=== PATIENT | female | born 1945 | race Caucasian/White ===

== ENCOUNTER 2016-12-30 10:45 | Inpatient (IN) | payer OTHER ==
[~2016-12-30] VITALS: Ht 165.1 cm; Wt 131.5 kg
--- NOTE | 2016-12-30 10:54 | NUR ---
PT TO ED WITH C/O NAUSEA, VOMITING AND DIARRHEA, CHILLS SINCE LAST NIGHT.
--- NOTE | 2016-12-30 11:29 | ED GI/GU/ABDOMINAL COMPLAINT ---
See Addendum History of Present Illness General Chief Complaint: General Adult Stated Complaint: SENT IN BY DR LOPES Source: patient Exam Limitations: no limitations Vital Signs & Intake/Output Vital Signs & Intake/Output Vital Signs Date Time Temp Pulse Resp B/P Pulse O2 O2 Flow FiO2 Ox Delivery Rate 12/30 1410 1300.0 12/30 1357 100.0 85 18 125/60 97 Room Air 12/30 1238 100.5 89 16 121/56 96 Room Air 12/30 1211 99.9 12/30 1130 Room Air 12/30 1129 99.4 95 20 113/53 96 Room Air 12/30 1053 97.3 102 20 98/65 95 Room Air Room Air Allergies Coded Allergies: Penicillins (HIVES 12/30/16) Sulfa (Sulfonamide Antibiotics) (HIVES 12/30/16) red dye (HIVES 12/30/16) Uncoded Allergies: DAIRY FOODS (SNEEZING 12/30/16) Reconcile Medications Alprazolam 0.5 MG TABLET 1 TAB PO BIDP PRN ANXIETY (Reported) Amlodipine Besylate 5 MG TABLET 1 TAB PO DAILY HEART (Reported) Metformin HCl 500 MG TABLET 1 TAB PO BID DM (Reported) Metoprolol Tartrate 50 MG TABLET 1 TAB PO BID BP (Reported) Omeprazole 20 MG CAPSULE. 1 CAP PO DAILY GI (Reported) Triage Note: PT TO ED WITH C/O NAUSEA, VOMITING AND DIARRHEA, CHILLS SINCE LAST NIGHT. Triage Nurses Notes Reviewed? yes ? N Is pt currently ? No Duration: better, gone now Timing: single episode today Quality/Severity: severe, stabbing, throbbing Severity Numbers: 10 Radiation: no radiation Activities at Onset: none HPI: Patient is a 71-year-old female who presents to emergency room sooner last night she was in her normal state of health patient went to sleep at approximately at 12:30 she woke up with acute onset of sharp stabbing severe right-sided back pain which the pain was persistent where there was intermittent episodes of pain radiating to the right groin. Patient states that this morning the symptoms still persisted however overnight she had a few episodes of nonbloody nonbilious emesis. Patient woke up this morning with one more episode of nonbloody nonbilious emesis and mild loose watery stool diarrhea production however no blood no melena was noted. Patient states that she tried taking Tylenol and ibuprofen however had emesis immediately afterwards. Patient states that prior to leaving her house for follow-up at her primary care doctor appointment she took a hot shower and symptoms completely resolved. Patient did have chills throughout the night that has now resolved. Patient was advised to present to the emergency room by primary care doctor. Patient currently is asymptomatic and states that she has no fever, chills, back pain abdominal pain nausea vomiting vaginal bleeding vaginal discharge dysuria hematuria chest pain and arm pain jaw pain. Patient has been able tolerate by mouth since symptoms resolved (HELLEN BRIGHT) ED Sepsis Exam Date of Focused Sepsis Exam: 12/30/16 Time of Focused Sepsis Exam: 1603 Sepsis Cardiac Exam: Regular Rate/Rhythm Sepsis Resp Exam: CTA Sepsis Cap Refill Exam: <2 Sec Sepsis Peripheral Pulse Exam: Normal Sepsis Peripheral Pulse Location: Radial Sepsis Skin Color Exam: Normal for Ethnicity Skin Temp/Moisture Exam: Warm/Dry (HELLEN BRIGHT) Past History Travel History Traveled to [facility] past 21 day No Medical History Any Pertinent Medical History? 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 No (HELLNE BRIGHT) Review of Systems Review of Systems Constitutional: Reports: see HPI, chills. EENTM: Reports: no symptoms. Respiratory: Reports: no symptoms. Cardiovascular: Reports: no symptoms. GI: Reports: see HPI, nausea, vomiting. Denies: abdominal pain. Genitourinary: Denies: discharge. Musculoskeletal: Reports: see HPI, back pain. Skin: Reports: no symptoms. Neurological/Psychological: Reports: no symptoms. Hematologic/Endocrine: Reports: no symptoms. Immunologic/Allergic: Reports: no symptoms. All Other Systems: Reviewed and Negative (HELLEN BRIGHT) Physical Exam Physical Exam General Appearance: no apparent distress, obese Gastrointestinal: normal bowel sounds, soft, non-tender Comments: Well-developed well-nourished person in no acute distress HEENT: Normal EENT exam, extraocular motion intact, no nystagmus. Pupils equally round and reactive to light and accommodation. Nose is atraumatic. External auditory canal and Tympanic membranes clear. Pharynx normal. No swelling or edema. Neck: Supple, no lymphadenopathy, normal range of motion without pain or tenderness Back: Nontender, no CVA tenderness. Cardiovascular: Regular rate and rhythms no murmurs rubs or gallops, normal JVP Respiratory: Chest nontender. No respiratory distress.breath sounds clear to auscultation bilaterally Abdomen: Soft, nontender nondistended, no appreciable organomegaly. Normal bowel sounds. No ascites Extremity: No edema, no calf tenderness to palpation, normal and equal pulses. Neuro: Alert oriented x3, motor sensory normal, Skin: No appreciable rash on exposed skin, skin is warm and dry. Psych: Mood and affect is normal, memory and judgment is normal. Core Measures ACS in differential dx? No Severe Sepsis Present: Yes BC x2: Yes Lactic Acid x2: Yes IV ABX Broad Spectrum: Yes NS/LR Started: Yes Septic Shock Present: No (CONRADO GARCIA,HELLEN) Progress Differential Diagnosis: AAA, AMI, appendicitis, biliary colic, bowel obstruction , colon cancer, cholecystitis, diverticulitis, ectopic , endometritis, esophageal varices, gastritis, hepatitis, hernia, hemorrhoids, ischemic bowel, inflamm bowel dis, intrauterine , kidney stone, Gemini-Hermes tear, ovarian cyst, ovarian torsion, pancreatitis, PID/cervicitis, peptic ulcer, PUD/ GERD, perforated viscous, SBO, threatened AB, UTI/pyelo Plan of Care: Orders Procedure Date/time Status Nothing by Mouth 12/30 D Active EKG 12/30 1622 Active Add-on Test (ER Only) 12/30 1236 Active BLOOD CULTURE 12/30 1227 Active LACTIC ACID 12/30 1158 Complete URINALYSIS 12/30 1139 Active MAGNESIUM 12/30 1139 Complete LIPASE 12/30 1139 Complete COMPREHENSIVE METABOLIC PANEL 12/30 1139 Complete CBC WITHOUT DIFFERENTIAL 12/30 1139 Complete AMYLASE 12/30 1139 Complete Current Medications Sig/Mitchell Start time Last Medication Dose Stop Time Status Admin Sodium Chloride 1,000 ML BOLUS ONE 12/30 1615 AC (Normal Saline 0.9%) 12/30 1714 Laboratory Tests 12/30/16 1612: Urine Color Pending, Urine Clarity Pending, Urine pH Pending, Ur Specific Busby Pending, Urine Protein Pending, Urine Ketones Pending, Urine Nitrite Pending, Urine Bilirubin Pending, Urine Urobilinogen Pending, Ur Leukocyte Esterase Pending, Ur Microscopic Pending, Urine Hemoglobin Pending, Urine Glucose Pending 12/30/16 1557: Lactic Acid Cancelled 12/30/16 1257: Lactic Acid Cancelled 12/30/16 1158: Lactic Acid 3.6 H 12/30/16 1158: Anion Gap 14, Estimated GFR 26 L, BUN/Creatinine Ratio 16.3, Glucose 129 H, Calcium 9.4, Magnesium 1.3 L, Total Bilirubin 0.9, AST 21, ALT 30, Alkaline Phosphatase 82, Total Protein 6.6, Albumin 3.5, Globulin 3.1, Albumin/Globulin Ratio 1.1, Amylase 177 H, Lipase 194, CBC w Diff MAN DIFF ORDERED, RBC 4.21, MCV 84.1, MCH 27.8, RDW 13.9, MPV 9.4, Segmented Neutrophils 65, Band Neutrophils 27 H, Lymphocytes 3 L, Monocytes 5, Platelet Estimate VERIFIED BY SMEAR, Normocytic RBCs VERIFIED, Normochromic RBCs VERIFIED, PUBS MCHC 33.0 Microbiology 12/30 1315 BLOOD: Blood Culture - RECD 12/30 1305 BLOOD: Blood Culture - RECD Patient currently is resting comfortably on her bed in his apparent distress and is asymptomatic and has nontender abdomen nontender back and states her symptoms have completely resolved. Blood work will be established at this time patient does not require a CT scan warrant emergently for patient in which she has no symptoms CT scan was resulted showing significant concerns of objective kidney stone and pyelonephritis I discussed patient with Dr. Adams who will emergently stent patient. Patient last ate 24 hours ago. Patient currently is in no apparent distress she was given sepsis criteria protocol patient was weight made aware of her critical health and the disposition and plan and she agrees Dr. Adams will Shaver catheterized patient to obtain urine which patient was unable to produce urine in the ER. (CONRADO GARCIA,HELLEN) Diagnostic Imaging: Viewed by Me: CT Scan. Radiology Impression: acute abnormality Initial ED EKG: none Comments: PATIENT: JIMI MOTA PRESENT AGE: 71 PATIENT ACCOUNT NO: [id number] : 47 LOCATION: [facility] ORDERING PHYSICIAN: HELLEN GARCIA SERVICE DATE: 12/30/162646 EXAM TYPE: CAT - CT ABD & PELVIS W/O IV CONTRAS EXAMINATION: CT ABDOMEN AND PELVIS WITHOUT CONTRAST CLINICAL INFORMATION: Nausea, vomiting and abdominal pain. COMPARISON: Ultrasound Kidney 06/04/2010. TECHNIQUE: Multidetector volumetric imaging was performed from the superior aspect of the liver through the pubic symphysis. Sagittal and coronal reformatted images were obtained on the technologist's workstation. DLP: 1376 mGy-cm FINDINGS: Limited evaluation of the solid abdominal viscera in the absence of intravenous contrast. LUNG BASES: The visualized lung bases are unremarkable. LIVER, GALLBLADDER, AND BILIARY TREE: The liver is normal in size, shape, and attenuation. No focal hepatic lesion or biliary ductal dilatation is present. The gallbladder is unremarkable with no evidence of radiopaque gallstones, gallbladder wall thickening, or obvious pericholecystic inflammatory changes. PANCREAS: Unremarkable. SPLEEN: Unremarkable. ADRENAL GLANDS: Unremarkable. KIDNEYS AND URETERS: Evaluation of the bilateral kidneys and renal collecting systems is notable for obstructive uropathy of the right kidney secondary to a large stone within the right renal pelvis, at the right ureteropelvic junction. This stone measures approximately 1.9 x 0.8 x 1.3 cm in transverse, AP and craniocaudal dimensions respectively. There is associated upstream mild to moderate hydronephrosis of the right kidney and proximal right ureter. Of note, a small focus of gas is identified within the midpole of the right kidney. A small locule of air is also noted within the right renal pelvis. The etiology for this air is unknown and may be secondary to recent attempt at catheterization although an emphysematous pyelitis can present similarly. There is diffuse right-sided perinephric stranding, which may be secondary to obstruction although a superimposed infection cannot be excluded. No appreciable nephrolithiasis or hydroureteronephrosis of the left kidney or left renal collecting system. BLADDER: Decompressed and partially evaluated secondary to streak artifact from total right hip arthroplasty. GASTROINTESTINAL TRACT: Normal anatomic orientation of the stomach relative to the duodenum. Normal caliber of abdominal and pelvic bowel loops, without evidence of obstruction or ileus. No circumferential bowel wall thickening with surrounding inflammatory changes to suggest an underlying infectious or inflammatory enterocolitis. Normal-appearing appendix within the right lower quadrant of the abdomen. Scattered colonic diverticulosis, notably involving the sigmoid colon, without secondary signs of acute diverticulitis. No organizing intra-abdominal fluid collections or free intraperitoneal air. ABDOMINAL WALL: No significant hernia is appreciated. LYMPH NODES: No significant abdominal or pelvic adenopathy. VASCULAR: Scattered atherosclerosis of the abdominal aorta and its branching vessels, without aneurysmal dilatation. Limited evaluation for vascular patency given lack of intravenous contrast. PELVIC VISCERA: Limited evaluation of the pelvic viscera secondary to streak artifact from total right hip arthroplasty. The uterus may be surgically absent. No adnexal masses are noted. OSSEOUS STRUCTURES: Demineralization of the visualized bones. Moderate multilevel degenerative changes of the lumbar spine, notably at L2-L3 and L5-S1. As noted above, there is mechanical hardware related to total right hip arthroplasty. No destructive osseous lesions are identified. There is no acute osseous abnormality. IMPRESSION: 1. Obstructive uropathy of the right kidney secondary to a large stone within the right renal pelvis, at the right ureteropelvic junction. This stone measures approximately 1.9 x 0.8 x 1.3 cm in transverse, AP and craniocaudal dimensions respectively. Two small locules of air are identified within the midpole of the right kidney as well as the right renal pelvis. In the absence of a known recent attempt at catheterization, this could reflect emphysematous pyelitis secondary to superimposed acute bacterial infection in the setting of obstruction. An early or developing emphysematous pyelonephritis can also present similarly and carries a high risk for fulminant sepsis. Recommend urological consultation and correlation with urinalysis and urine culture. 2. Scattered sigmoid diverticulosis, without secondary signs of acute diverticulitis. 3. Additional nonemergent findings, as detailed above. This critical result was discussed with Dr. Heleln Kingston at 2:21 PM on 12/30/2016 and it was ascertained that the content and urgency of the report was understood at the time of direct communication. DICTATED BY: VIKTOR MORALES MD DATE/TIME DICTATED:12/30/161405 REGRINDER OPERATOR:NAM DATE/TIME TRANSCRIBED:12/30/161405 (HELLEN BRIGHT) Departure Departure Disposition: STILL A PATIENT Condition: Critical Clinical Impression Primary Impression: Sepsis Secondary Impressions: Kidney stone, Pyelonephritis, UTI (urinary tract infection) Referrals: MOSES CHAMPION,IMER Tesfaye (PCP/Family) Departure Forms: Customer Survey General Discharge Information OR/GI Note Spoke With: ZHAO ADAMS MD ED Treatment Decision: JIMI MOTA requires urgent operative management or an emergent procedure that cannot be performed in the Emergency Room setting. Transport To: [facility] (HELLEN BRIGHT) PA/LOCATOR Co-Sign Statement Statement: ED Attending supervision documentation- [X] I saw and evaluated the patient. I have also reviewed all the pertinent lab results and diagnostic results. I agree with the findings and the plan of care as documented in the PA's/LOCATOR's documentation. [X] I have reviewed the ED Record and agree with the PA's/LOCATOR's documentation. [] Additions or exceptions (if any) to the PAs/LOCATOR's note and plan are summarized below: [] (CORKY CHAMPION,FRANC Rivera) Critical Care Note Critical Care Note Critical Care Time: 30-74 min (HELLEN BRIGHT)
--- NOTE | 2016-12-30 11:30 | NUR ---
[facility] CAMP AT BEDSIDE
[2016-12-30] MEDS ORDERED: METFORMIN HCL500 M3 PO (11:39)
[2016-12-30] MEDS ORDERED: OMEPRAZOLE20 M2 PO (11:40)
[2016-12-30] MEDS ORDERED: AMLODIPINE BESYL5 M1 PO (11:40)
[2016-12-30] MEDS ORDERED: METOPROLOL TART50 M1 PO (11:41)
[2016-12-30] MEDS ORDERED: ALPRAZOLAM0.5 M4 PO (11:41)
--- NOTE | 2016-12-30 12:03 | NUR ---
LABS DRAWN AND SENT: SST, BLUE, LAV, MORELAND
[2016-12-30 12:09] LABS: HEMATOCRIT 35.4 % (37-47); MEAN CORPUSCULAR HGB 27.8 PG (27.0-31.0); MEAN CORPUSCULAR VOLUME 84.1 FL (81.0-99.0); MEAN PLATELET VOLUME 9.4 FL (7.4-10.4); PLATELET COUNT 121 /CUMM (130-400); RBC DISTRIBUTION WIDTH 13.9 % (11.5-14.5); RED BLOOD CELL CT 4.21 /CUMM (4.20-5.40); WHITE BLOOD CELL COUNT 12.5 /CUMM (4.8-10.8)
--- NOTE | 2016-12-30 12:11 | NUR ---
PT C/O SEVERE CHILLS, TEMP 99.9 TYMPANICALLY. RADHA CAMP AT BEDSIDE FOR RE-EVAL. PT'S FAMILY MEMBERS VERY CONCERNED. REASSURANCE PROVIDED
--- NOTE | 2016-12-30 12:52 | NUR ---
PT HAS SECOND LITER INFUSING
--- NOTE | 2016-12-30 14:00 | NUR ---
CRITICAL TEST RESULTS [id number] JIMI MOTA 71 F TESTS AND RESULTS: LACTIC 3.6 Results received and read back by: ARCADIO HIGHTOWER Results received date and time: 12/30/16 1405 The following provider was notified of the results, and read the results back: DR. FRIED Notified date and time: 12/30/16 at 1400
--- NOTE | 2016-12-30 14:30 | NUR ---
MD DISCUSS POC WITH PT AND FAMILY
--- NOTE | 2016-12-30 14:34 | CT SCAN REPORT ---
EXAMINATION: CT ABDOMEN AND PELVIS WITHOUT CONTRAST CLINICAL INFORMATION: Nausea, vomiting and abdominal pain. COMPARISON: Ultrasound Kidney 06/04/2010. TECHNIQUE: Multidetector volumetric imaging was performed from the superior aspect of the liver through the pubic symphysis. Sagittal and coronal reformatted images were obtained on the technologist's workstation. DLP: 1376 mGy-cm FINDINGS: Limited evaluation of the solid abdominal viscera in the absence of intravenous contrast. LUNG BASES: The visualized lung bases are unremarkable. LIVER, GALLBLADDER, AND BILIARY TREE: The liver is normal in size, shape, and attenuation. No focal hepatic lesion or biliary ductal dilatation is present. The gallbladder is unremarkable with no evidence of radiopaque gallstones, gallbladder wall thickening, or obvious pericholecystic inflammatory changes. PANCREAS: Unremarkable. SPLEEN: Unremarkable. ADRENAL GLANDS: Unremarkable. KIDNEYS AND URETERS: Evaluation of the bilateral kidneys and renal collecting systems is notable for obstructive uropathy of the right kidney secondary to a large stone within the right renal pelvis, at the right ureteropelvic junction. This stone measures approximately 1.9 x 0.8 x 1.3 cm in transverse, AP and craniocaudal dimensions respectively. There is associated upstream mild to moderate hydronephrosis of the right kidney and proximal right ureter. Of note, a small focus of gas is identified within the midpole of the right kidney. A small locule of air is also noted within the right renal pelvis. The etiology for this air is unknown and may be secondary to recent attempt at catheterization although an emphysematous pyelitis can present similarly. There is diffuse right-sided perinephric stranding, which may be secondary to obstruction although a superimposed infection cannot be excluded. No appreciable nephrolithiasis or hydroureteronephrosis of the left kidney or left renal collecting system. BLADDER: Decompressed and partially evaluated secondary to streak artifact from total right hip arthroplasty. GASTROINTESTINAL TRACT: Normal anatomic orientation of the stomach relative to the duodenum. Normal caliber of abdominal and pelvic bowel loops, without evidence of obstruction or ileus. No circumferential bowel wall thickening with surrounding inflammatory changes to suggest an underlying infectious or inflammatory enterocolitis. Normal-appearing appendix within the right lower quadrant of the abdomen. Scattered colonic diverticulosis, notably involving the sigmoid colon, without secondary signs of acute diverticulitis. No organizing intra-abdominal fluid collections or free intraperitoneal air. ABDOMINAL WALL: No significant hernia is appreciated. LYMPH NODES: No significant abdominal or pelvic adenopathy. VASCULAR: Scattered atherosclerosis of the abdominal aorta and its branching vessels, without aneurysmal dilatation. Limited evaluation for vascular patency given lack of intravenous contrast. PELVIC VISCERA: Limited evaluation of the pelvic viscera secondary to streak artifact from total right hip arthroplasty. The uterus may be surgically absent. No adnexal masses are noted. OSSEOUS STRUCTURES: Demineralization of the visualized bones. Moderate multilevel degenerative changes of the lumbar spine, notably at L2-L3 and L5-S1. As noted above, there is mechanical hardware related to total right hip arthroplasty. No destructive osseous lesions are identified. There is no acute osseous abnormality. IMPRESSION: 1. Obstructive uropathy of the right kidney secondary to a large stone within the right renal pelvis, at the right ureteropelvic junction. This stone measures approximately 1.9 x 0.8 x 1.3 cm in transverse, AP and craniocaudal dimensions respectively. Two small locules of air are identified within the midpole of the right kidney as well as the right renal pelvis. In the absence of a known recent attempt at catheterization, this could reflect emphysematous pyelitis secondary to superimposed acute bacterial infection in the setting of obstruction. An early or developing emphysematous pyelonephritis can also present similarly and carries a high risk for fulminant sepsis. Recommend urological consultation and correlation with urinalysis and urine culture. 2. Scattered sigmoid diverticulosis, without secondary signs of acute diverticulitis. 3. Additional nonemergent findings, as detailed above. This critical result was discussed with Dr. Devin Kingston at 2:21 PM on 12/30/2016 and it was ascertained that the content and urgency of the report was understood at the time of direct communication.
--- NOTE | 2016-12-30 14:43 | NUR ---
PT MEDICATED WITH ROCEPHIN ORDERED
--- NOTE | 2016-12-30 14:53 | NUR ---
PT HAS IV FLAGYL AND NS INFUSING
--- NOTE | 2016-12-30 16:18 | NUR ---
URINE COLLECTED AND SENT TO LAB TRIO TUBE SET COLLECTED
--- NOTE | 2016-12-30 16:39 | Cons- Urology ---
General Information and HPI Consulting Request Date of Consult: 12/30/16 Requested By: DO. RIVERA GREGORY-EMERGENCY DEPARTMENT Reason for Consult: RIGHT RENAL PAIN WITH ARF, HYDRO, ?SEPSIS Source of Information: patient, old records Exam Limitations: no limitations History of Present Illness: 71 YEAR OLD WITH SUDDEN ONSET RIGHT RENAL COLIC. NOTED TO HAVE ARF, HYDRO. AND VERY LITTLE URINE OUTPUT. PAIN MANAGED CURRENTLY WITH MEDS. NO FEVER/CHILL/N/ V. Allergies/Medications Allergies: Coded Allergies: Penicillins (HIVES 12/30/16) Sulfa (Sulfonamide Antibiotics) (HIVES 12/30/16) red dye (HIVES 12/30/16) Uncoded Allergies: DAIRY FOODS (SNEEZING 12/30/16) Home Med List: Alprazolam 0.5 MG TABLET 1 TAB PO BIDP PRN ANXIETY (Reported) Amlodipine Besylate 5 MG TABLET 1 TAB PO DAILY HEART (Reported) Metformin HCl 500 MG TABLET 1 TAB PO BID DM (Reported) Metoprolol Tartrate 50 MG TABLET 1 TAB PO BID BP (Reported) Omeprazole 20 MG CAPSULE.DR 1 CAP PO DAILY GI (Reported) Current Medications: Current Medications Sig/Mitchell Start time Last Medication Dose Route Stop Time Status Admin Acetaminophen 0 .STK-MED ONE 12/30 1323 DC IV Acetaminophen 1,000 MG ONCE ONE 12/30 1230 DC 12/30 N/A 1 UNIT IV 12/30 1244 1410 Ceftriaxone Sodium 0 .STK-MED ONE 12/30 1441 DC .ROUTE Ceftriaxone Sodium 1,000 MG ONCE ONE 12/30 1430 DC 12/30 IV 12/30 1431 1443 Ketorolac 0 .STK-MED ONE 12/30 1218 DC Tromethamine .ROUTE Ketorolac 30 MG ONCE ONE 12/30 1215 DC 12/30 Tromethamine IV 12/30 1216 1221 Metronidazole 500 MG ONCE ONE 12/30 1430 DC 12/30 N/A 1 UNIT IV 12/30 1529 1450 Sodium Chloride 1,000 ML BOLUS ONE 12/30 1615 AC IV 12/30 1714 Sodium Chloride 1,000 ML BOLUS ONE 12/30 1500 DC 12/30 IV 12/30 1559 1450 Sodium Chloride 1,000 ML BOLUS ONE 12/30 1245 DC 12/30 IV 12/30 1344 1252 Sodium Chloride 1,000 ML BOLUS ONE 12/30 1145 DC 12/30 IV 12/30 1244 1200 Past History Medical History Neurological: NONE EENT: NONE Cardiovascular: hypertension, hyperlipidemia Respiratory: NONE Gastrointestinal: diverticulitis, GERD, hiatal hernia Hepatic: NONE Renal: NONE Musculoskeletal: osteoarthritis Psychiatric: depression Endocrine: diabetes Blood Disorders: NONE Cancer(s): NONE DIRECTOR OF SERVICES/Reproductive: NONE Surgical History Pertinent Surgical History: Psychosocial History Services at Home: None ETOH Use: denies use Illicit Drug Use: denies illicit drug use Employment History Retired? yes Review of Systems Review of Systems Constitutional: Denies: no symptoms. EENTM: Denies: no symptoms. Cardiovascular: Denies: no symptoms. Respiratory: Denies: no symptoms. GI: Reports: abdominal pain, bloating. Genitourinary: Reports: dysuria. Musculoskeletal: Denies: no symptoms. Skin: Denies: no symptoms. Exam & Diagnostic Data Vital Signs and I&O Vital Signs Date Time Temp Pulse Resp B/P Pulse O2 O2 Flow FiO2 Ox Delivery Rate 12/30 1410 1300.0 12/30 1357 100.0 85 18 125/60 97 Room Air 12/30 1238 100.5 89 16 121/56 96 Room Air 12/30 1211 99.9 12/30 1130 Room Air 12/30 1129 99.4 95 20 113/53 96 Room Air 12/30 1053 97.3 102 20 98/65 95 Room Air Room Air Intake & Output 12/30 1600 12/30 0800 12/30 0000 12/29 1600 12/29 0800 12/29 0000 Intake Total 2100 Output Total Balance 2100 Intake, IV 2100 Patient 290 lb Weight Physical Exam General Appearance: well developed/nourished Head: atraumatic Eyes: Bilateral: normal appearance. Neck: normal inspection Respiratory: normal breath sounds Cardiovascular: regular rate/rhythm Gastrointestinal: normal bowel sounds Back: CVA tenderness (R) Extremities: normal inspection Skin: intact Last 24 Hours of Labs: Laboratory Tests 12/30 12/30 12/30 1557 1257 1158 Chemistry Lactic Acid (0.7 - 2.1 mmol/L) Cancelled Cancelled 3.6 H 12/30 1158 Chemistry Sodium (137 - 145 mmol/L) 137 Potassium (3.5 - 5.1 mmol/L) 3.5 Chloride (98 - 107 mmol/L) 103 Carbon Dioxide (22 - 30 mmol/L) 19 L Anion Gap (5 - 16) 14 BUN (7 - 17 mg/dL) 31 H Creatinine (0.5 - 1.0 mg/dL) 1.9 H Estimated GFR (>60 ml/min) 26 L BUN/Creatinine Ratio (7 - 25 %) 16.3 Glucose (65 - 99 mg/dL) 129 H Calcium (8.4 - 10.2 mg/dL) 9.4 Magnesium (1.6 - 2.3 mg/dL) 1.3 L Total Bilirubin (0.2 - 1.3 mg/dL) 0.9 AST (14 - 36 U/L) 21 ALT (9 - 52 U/L) 30 Alkaline Phosphatase (<127 U/L) 82 Total Protein (6.3 - 8.2 g/dL) 6.6 Albumin (3.5 - 5.0 g/dL) 3.5 Globulin (1.9 - 4.2 gm/dL) 3.1 Albumin/Globulin Ratio (1.1 - 2.2 %) 1.1 Amylase (30 - 110 U/L) 177 H Lipase (23 - 300 U/L) 194 Hematology CBC w Diff MAN DIFF ORDERED WBC (4.8 - 10.8 /CUMM) 12.5 H RBC (4.20 - 5.40 /CUMM) 4.21 Hgb (12.0 - 16.0 G/DL) 11.7 L Hct (37 - 47 %) 35.4 L MCV (81.0 - 99.0 FL) 84.1 MCH (27.0 - 31.0 PG) 27.8 RDW (11.5 - 14.5 %) 13.9 Plt Count (130 - 400 /CUMM) 121 L MPV (7.4 - 10.4 FL) 9.4 Segmented Neutrophils (42.2 - 75.2 %) 65 Band Neutrophils (0.0 - 5.0 %) 27 H Lymphocytes (20.5 - 51.1 %) 3 L Monocytes (1.7 - 9.3 %) 5 Platelet Estimate (ADEQUATE) VERIFIED BY SMEAR Normocytic RBCs VERIFIED Normochromic RBCs VERIFIED PUBS MCHC (33.0 - 37.0 G/DL) 33.0 Imaging Results: PATIENT: JIMI MOTA PRESENT AGE: 71 PATIENT ACCOUNT NO: [id number] : 47 LOCATION: [facility] ([place]) ORDERING PHYSICIAN: HELLEN GARCIA SERVICE DATE: 12/30/162929 EXAM TYPE: CAT - CT ABD & PELVIS W/O IV CONTRAS EXAMINATION: CT ABDOMEN AND PELVIS WITHOUT CONTRAST CLINICAL INFORMATION: Nausea, vomiting and abdominal pain. COMPARISON: Ultrasound Kidney 06/04/2010. TECHNIQUE: Multidetector volumetric imaging was performed from the superior aspect of the liver through the pubic symphysis. Sagittal and coronal reformatted images were obtained on the technologist's workstation. DLP: 1376 mGy-cm FINDINGS: Limited evaluation of the solid abdominal viscera in the absence of intravenous contrast. LUNG BASES: The visualized lung bases are unremarkable. LIVER, GALLBLADDER, AND BILIARY TREE: The liver is normal in size, shape, and attenuation. No focal hepatic lesion or biliary ductal dilatation is present. The gallbladder is unremarkable with no evidence of radiopaque gallstones, gallbladder wall thickening, or obvious pericholecystic inflammatory changes. PANCREAS: Unremarkable. SPLEEN: Unremarkable. ADRENAL GLANDS: Unremarkable. KIDNEYS AND URETERS: Evaluation of the bilateral kidneys and renal collecting systems is notable for obstructive uropathy of the right kidney secondary to a large stone within the right renal pelvis, at the right ureteropelvic junction. This stone measures approximately 1.9 x 0.8 x 1.3 cm in transverse, AP and craniocaudal dimensions respectively. There is associated upstream mild to moderate hydronephrosis of the right kidney and proximal right ureter. Of note, a small focus of gas is identified within the midpole of the right kidney. A small locule of air is also noted within the right renal pelvis. The etiology for this air is unknown and may be secondary to recent attempt at catheterization although an emphysematous pyelitis can present similarly. There is diffuse right-sided perinephric stranding, which may be secondary to obstruction although a superimposed infection cannot be excluded. No appreciable nephrolithiasis or hydroureteronephrosis of the left kidney or left renal collecting system. BLADDER: Decompressed and partially evaluated secondary to streak artifact from total right hip arthroplasty. GASTROINTESTINAL TRACT: Normal anatomic orientation of the stomach relative to the duodenum. Normal caliber of abdominal and pelvic bowel loops, without evidence of obstruction or ileus. No circumferential bowel wall thickening with surrounding inflammatory changes to suggest an underlying infectious or inflammatory enterocolitis. Normal-appearing appendix within the right lower quadrant of the abdomen. Scattered colonic diverticulosis, notably involving the sigmoid colon, without secondary signs of acute diverticulitis. No organizing intra-abdominal fluid collections or free intraperitoneal air. ABDOMINAL WALL: No significant hernia is appreciated. LYMPH NODES: No significant abdominal or pelvic adenopathy. VASCULAR: Scattered atherosclerosis of the abdominal aorta and its branching vessels, without aneurysmal dilatation. Limited evaluation for vascular patency given lack of intravenous contrast. PELVIC VISCERA: Limited evaluation of the pelvic viscera secondary to streak artifact from total right hip arthroplasty. The uterus may be surgically absent. No adnexal masses are noted. OSSEOUS STRUCTURES: Demineralization of the visualized bones. Moderate multilevel degenerative changes of the lumbar spine, notably at L2-L3 and L5-S1. As noted above, there is mechanical hardware related to total right hip arthroplasty. No destructive osseous lesions are identified. There is no acute osseous abnormality. IMPRESSION: 1. Obstructive uropathy of the right kidney secondary to a large stone within the right renal pelvis, at the right ureteropelvic junction. This stone measures approximately 1.9 x 0.8 x 1.3 cm in transverse, AP and craniocaudal dimensions respectively. Two small locules of air are identified within the midpole of the right kidney as well as the right renal pelvis. In the absence of a known recent attempt at catheterization, this could reflect emphysematous pyelitis secondary to superimposed acute bacterial infection in the setting of obstruction. An early or developing emphysematous pyelonephritis can also present similarly and carries a high risk for fulminant sepsis. Recommend urological consultation and correlation with urinalysis and urine culture. 2. Scattered sigmoid diverticulosis, without secondary signs of acute diverticulitis. 3. Additional nonemergent findings, as detailed above. This critical result was discussed with Dr. Hellen Kingston at 2:21 PM on 12/30/2016 and it was ascertained that the content and urgency of the report was understood at the time of direct communication. Assessment/Plan Assessment/Plan RIGHT URETER STONE CAUSING OBST, ARF, LOW U/O, AND INCRESED SEPSIS RISK.: NEED STENT LIZ Other Findings/Comments: SEE ABOVE: Copies To: ZHAO MARVIN MD Consult Acknowledgment - Thank you for your consult request. Attending MD Review Statement Attending Statement Attending MD Statement: examined this patient, discuss w/resident/PA/T[employer]OP BENDER Attending Assessment/Plan: OBST. RIGTH KIDNEY: NEEDS STENT LIZ
--- NOTE | 2016-12-30 17:58 | NUR ---
JIMI MOTA Nurse Note by: GRANT BRANDON I agree with the DIE BAKER findings/evaluation of this patient's condition. Entered by: GRANT BRANDON Date: 12/30/16 Time: [id number]
--- NOTE | 2016-12-30 19:28 | Operative Report ---
Operative/Inv Procedure Report Surgery Date: 12/30/16 Name of Procedure: CYSTOSCOPY: RIGHT STENT INSERTION. RETROGRADE PYELOGRAM. FLUROSCOPY Pre-Operative Diagnosis: OBSTRUCTED RIGHT KIDNEY WITH SEPSIS Post-Operative Diagnosis: SAME Estimated Blood Loss: scant Surgeon/Vascular Technologist: MD SHAVONNE, ZHAO-UROLOGY Anesthesia: general endotracheal tube Complications: NONE Operative Indication: OBSTRUCTED SEPTIC RIGHT KIDNEY Operative/Procedure Note Note: The patient was taken to the operating room and placed on the OR table in supine position. Timeout was performed, with the patient awake, in order to confirm identity, procedure, antibiotics, anesthesia, and other pertinent information. After adequate anesthesia and antibiotics, the patient was placed in lithotomy stirrups draped and prepped in the usual surgical fashion. A 22 Kinyarwanda cystoscope sheath with 30 angle lens was inserted into the urethra without difficulty. Upon entering the bladder, the bladder was noted to be free of tumor, free of stone, with clear reflux from the left ureteral orifice, and no efflux from the right. Under direct visualization the right ureter orifice was intubated with a 5 Kinyarwanda open-ended catheter. A retrograde pyelogram, with fluoroscopy was performed. The distal ureter filling defect consistent with stone was clearly visible, with proximal hydroureter, and hydronephrosis. The open-ended stent was then removed, followed by insertion of a 0.035 Glidewire into the right ureteral orifice. The Glidewire was advanced into the right renal pelvis easily, confirmed by fluoroscopy. Over the Glidewire, a 6 x 22 Bard inlay ureteral stent was advanced. With the proximal coil reaching the right renal pelvis, and the distal coil in the bladder, the Glidewire was removed. The stent remained in proper place both cystoscopically, and fluoroscopically. The bladder was then drained, and the cystoscope was removed. The patient tolerated procedure well and will follow-up as outpatient for further plan/procedures. Findings: LARGE RIGHT UPJ STONE WITH HYDRO.-DRAINING WELL POST STENT CC: ZHAO MARVIN MD
--- NOTE | 2016-12-30 20:03 | History & Physical ---
[facility] 12/30/16 2002: General Information and HPI MD Statement: I have seen and personally examined JIMI MOTA and documented this H&P. The patient is a 71 year old F who presented with a patient stated chief complaint of back pain. Source of Information: patient, old records Exam Limitations: no limitations History of Present Illness: Mrs Ziegler is a 71-year-old lady with past medical history of diabetes, hypertension, GERD and anxiety who presented to the emergency department on 12/29 after experiencing right sided back pain. The patient states that she was in her normal state of health until approximately 12:30 AM on 12/29/2016 when she experienced a sharp and stabbing pain on the right side of her back. The pain was rated at a 10 out of 10 in severity. Patient states over the course of the evening she had to two emetic episodes. She describes these emesis as nonbloody although did contain bile. On the morning of 12/29/2016 the patient went to see her primary care physician Dr. Lopes who after a brief medical encounter recommended that she come to the emergency department for additional workup. The patient also reports overnight while experienceing right sided pain, she had episodes of rigorsShe states that her temperature taken at home was 102.7 deg F. She denies any changes to her appetite. Patient also endorses that approximately 10 days ago she had a similar episode however pain was limited to the right groin and subsequently resolved. Allergies/Medications Allergies: Coded Allergies: Penicillins (HIVES 12/30/16) Sulfa (Sulfonamide Antibiotics) (HIVES 12/30/16) red dye (HIVES 12/30/16) Uncoded Allergies: DAIRY FOODS (SNEEZING 12/30/16) Home Med list Alprazolam 0.5 MG TABLET 1 TAB PO BIDP PRN ANXIETY (Reported) Amlodipine Besylate 5 MG TABLET 1 TAB PO DAILY elevated blood pressure ( Reported) Ciprofloxacin HCl (Cipro) 500 MG TABLET 1 TAB PO BID urinary infection Lisinopril 5 MG TABLET 1 TAB PO DAILY HYPERTENSION (Reported) Metformin HCl 500 MG TABLET 1 TAB PO BID DM (Reported) Metoprolol Tartrate 50 MG TABLET 1 TAB PO BID BP (Reported) Omeprazole 20 MG CAPSULE.DR 1 CAP PO DAILY GI (Reported) Compliance With Home Meds: GOOD Past History Travel History Traveled to [place] past 21 day No Medical History Neurological: NONE EENT: NONE Cardiovascular: hypertension, hyperlipidemia Respiratory: NONE Gastrointestinal: diverticulitis, GERD, hiatal hernia Hepatic: NONE Renal: NONE Musculoskeletal: osteoarthritis Psychiatric: depression Endocrine: diabetes Blood Disorders: NONE Cancer(s): NONE STRAPPER/Reproductive: NONE History of MRSA: No History of VRE: No History of CDIFF: No Surgical History Surgical History: Past Family/Social History Psychosocial History Where do you live? Home Services at Home: None Primary Language: Arabic ETOH Use: denies use Illicit Drug Use: denies illicit drug use Functional Ability ADLs Independent: dressing, eating, toileting, bathing. Review of Systems Review of Systems Constitutional: Reports: chills, fever, malaise, weakness. Denies: diaphoresis. Cardiovascular: Denies: chest pain, edema, orthopena, palpitations, peripheral edema, syncope. Respiratory: Denies: cough, hemoptysis, orthopnea, short of breath, sputum production, stridor. GI: Reports: abdominal pain, nausea, vomiting. Denies: bloating, constipation, diarrhea, distention, bloody stool, changes in stool. Genitourinary: Reports: see HPI (Reports Cloudy Urine). Denies: discharge, dysuria, frequency, pain, urgency. Musculoskeletal: Denies: back pain, gout, joint pain, joint swelling, muscle pain, muscle stiffness. Exam & Diagnostic Data Last 24 Hrs of Vital Signs/I&O Vital Signs Date Time Temp Pulse Resp B/P Pulse O2 O2 Flow FiO2 Ox Delivery Rate 12/30 2202 98.6 96 18 100/60 95 Nasal 3.0L Cannula 12/30 1410 1300.0 12/30 1357 100.0 85 18 125/60 97 Room Air 12/30 1238 100.5 89 16 121/56 96 Room Air 12/30 1211 99.9 12/30 1130 Room Air 12/30 1129 99.4 95 20 113/53 96 Room Air 12/30 1053 97.3 102 20 98/65 95 Room Air Room Air Intake & Output 12/30 1600 12/30 0800 12/30 0000 Intake Total 2100 Output Total Balance 2100 Intake, IV 2100 Patient 131.542 kg Weight Physical Exam General Appearance Alert, Oriented X3, Cooperative Skin No Rashes HEENT Mucous Membr. moist/pink Lymphatic Cervical nl Cardiovascular Regular Rate, Normal S1, Normal S2 Lungs Clear to Auscultation, Limited Exam due to body Habitus Abdomen Normal Bowel Sounds, Soft, No Tenderness Neurological Sensation Intact Extremities Edema 2+ Vascular Normal Pulses Last 24 Hrs of Labs/Johan: Laboratory Tests 12/30/16 2201: Lactic Acid 4.7 H 12/30/16 1612: Urine Color YEL, Urine Clarity CLEAR, Urine pH 6.0, Ur Specific [place] 1.010, Urine Protein TRACE H, Urine Ketones TRACE H, Urine Nitrite POS H, Urine Bilirubin NEG, Urine Urobilinogen 1.0, Ur Leukocyte Esterase MOD H, Ur Microscopic SEDIMENT EXAMINED, Urine RBC 5-10 H, Urine WBC 25-50 H, Ur Epithelial Cells MOD H, Urine Hemoglobin MOD H, Urine Glucose NEG 12/30/16 1557: Lactic Acid Cancelled 12/30/16 1257: Lactic Acid Cancelled 12/30/16 1158: Lactic Acid 3.6 H 12/30/16 1158: Anion Gap 14, Estimated GFR 26 L, BUN/Creatinine Ratio 16.3, Glucose 129 H, Calcium 9.4, Magnesium 1.3 L, Total Bilirubin 0.9, AST 21, ALT 30, Alkaline Phosphatase 82, Total Protein 6.6, Albumin 3.5, Globulin 3.1, Albumin/Globulin Ratio 1.1, Amylase 177 H, Lipase 194, CBC w Diff MAN DIFF ORDERED, RBC 4.21, MCV 84.1, MCH 27.8, RDW 13.9, MPV 9.4, Segmented Neutrophils 65, Band Neutrophils 27 H, Lymphocytes 3 L, Monocytes 5, Platelet Estimate VERIFIED BY SMEAR, Normocytic RBCs VERIFIED, Normochromic RBCs VERIFIED, PUBS MCHC 33.0 Microbiology 12/30 2112 URINE ROUT: Urine Culture - ORD 12/30 190 URINE ROUT: Urine Culture - RECD 12/30 1315 BLOOD: Blood Culture - RECD 12/30 1305 BLOOD: Blood Culture - RECD Diagnostic Data EKG Results Rate 98 QT 360 Sinus Rhythm. Ventricular Trigeminy. Other Results EXAM TYPE: CAT - CT ABD & PELVIS W/O IV CONTRAST IMPRESSION: 1. Obstructive uropathy of the right kidney secondary to a large stone within the right renal pelvis, at the right ureteropelvic junction. This stone measures approximately 1.9 x 0.8 x 1.3 cm in transverse, AP and craniocaudal dimensions respectively. Two small locules of air are identified within the midpole of the right kidney as well as the right renal pelvis. In the absence of a known recent attempt at catheterization, this could reflect emphysematous pyelitis secondary to superimposed acute bacterial infection in the setting of obstruction. An early or developing emphysematous pyelonephritis can also present similarly and carries a high risk for fulminant sepsis. Recommend urological consultation and correlation with urinalysis and urine culture. 2. Scattered sigmoid diverticulosis, without secondary signs of acute diverticulitis. 3. Additional nonemergent findings, as detailed above. Assessment/Plan Assessment: This is a 71-year-old female with past medical history of HTN and diabetes who presented with right sided flank pain secondary due to obstructive large stone. #Sepsis of urological origin likely status post right stent placement s/p obstructive uropathy Imaging studies did show stone measuring 1.90.81.3 cm as well as evidence of emphysematous pyelitis. Continue to hydrate the patient at normal saline 100 mL per hour. Urine cultures Blood cultures 2 Continue ceftriaxone for now. Once further cultures obtained we can tailor appropriate Antibiotics. On admission patient had elevated lactate will trend lactate till resolved: 3.6- ->4.7-->3.4 Ensure lactate going down to rule out hypoperfusion of vital organs. #Acute kidney injury On admission patient's creatinine was 1.9 Hold lisinopril until creatinine within normal limits. Maintain blood pressure below 130/90. BEP in a.m. #History of diabetes mellitus Begin patient on sliding scale insulin. If sugars remain uncontrollable consider endocrinology consult. Aim to maintain blood sugars below 150. #History of anxiety Hold medications to a.m. Continue Xanax 0.5 mg twice a day. #History of GERD Continue patient on PPI #Diet Consistent carbohydrate #DVT prophylaxis Heparin subcutaneous #Code Full code As Ranked By This Provider Problem List: 1. Kidney stone 2. Sepsis Core Measures/Miscellaneous Acute Coronary Syndrome ACS Diagnosis: No Cerebrovascular Accident CVA/TIA Diagnosis: No Congestive Heart Failure CHF Diagnosis: No Venous Thromboembolism VTE Risk Factors: Acute medical illness, Age > 40 VTE Prophylaxis Ordered Inpt: Pharm- Heparin No Mech VTE prophylaxis d/t: No contraindications No VTE Pharm Prophylaxis d/t: No contraindications VTE Diagnosis: No VTE Type: NONE VTE Confirmed by (Test): NONE Severe Sepsis Severe Sepsis Present: Yes BC x2: Yes Lactic Acid x2: Yes IV ABX Broad Spectrum: Yes NS/LR Started: Yes Septic Shock Septic Shock Present: No Miscellaneous Documentation Attending Case Discussed With: TOMY NOE MD Primary Care Physician: IMER LOPES MD Patient sees these Specialists NA Level of Patient Care: General Medicine GAURAV NOE MD 12/30/16 2006: Attending MD Review Statement Attending Statement Attending MD Statement: examined this patient, discuss w/resident/PA/FURNACE RELINER, agreed w/resident/PA/FURNACE RELINER Attending Assessment/Plan: 71 yo morbidly obese F with h/o HTN, GERD, T2DM, CKD stage 3A, HLD, chronic pain , DJD, presented to ER with 1-day h/o right sided flank pain associated with nausea, bilious vomiting and diarrhea. No previous h/o kidney stones. She has a h/o PVC's and has an appointment with Dr. Montes De Oca next week. She denies any recent instrumentation. Imaging revealed large right UPJ stone with hydronephrosis with emphysematous pyelitis/pyelonephritis. She was evaluated by Dr. Adams and taken to OR directly for cystoscopy and right stent placement. Patient was seen by medical team in the PACU. While in the OR, plan was for LMA, however patient desaturated to 60% and hence she was intubated for the procedure. She was also noted to be hypotensive to 90's requiring fluid resuscitation as told to me by Dr. Adams. She was extubated post-procedure without any untoward event. Patient denies any discomfort. Vitals: Tmax 100.5, tachycardic, borderline BP, sats 95% on 3L. Labs: WBC 12.5, Plt 121, bands 27, bicarb 19, BUN 31, creat 1.9 (baseline 1.2), lactic acid 3.6, Mag 1.3, UA positive. EKG: SR with PVCs. 1. Severe sepsis 2/2 obstructive uropathy s/p right ureteral stent insertion. GM admit, follow blood and urine cultures, continue IV ceftriaxone, IV fluids, trend lactic acid. Pain management. Replete electrolytes. Provide incentive spirometry. 2. Acute on CKD stage 3A. Hold lisinopril and metformin. IV fluids, trend BUN/ creatinine. 3. GERD. IV PPI. 4. T2DM. Hold metformin. Accucheks, novolog SS. DVT ppx Alps (given thrombocytopenia). Full code. GAYLE GONZALEZ MD 12/30/16 2148: Resident Review Statement Resident Statement: examined this patient, discussed with internal specialist, agreed with internal specialist Other Findings: 71 y/o woman with a PMH of HTN, HLD, GERD, Depression, DM presenting to the ED with complaints of severe back pain of the right side associated wtih nausea and vomiting. Imaging done in the ED showed the presence of a large stone in the Rt UPJ and the patient was taken in to the OR by urology for placement of a UPJ stent on the right side. She was also found to have an elevated white count with a left shift, elevated lactate levels and acute kidney injury. She was given IV ceftriaxone and flagyl in the ED. She will be admitted to for further management of sepsis of urological origin from obstructive uropathy. Problem List: * Sepsis of urological origin * Obstructive uropathy s/p stenting on the right side * Hypertension * Diabetes mellitus * GERD * Anxiety Plan: * Admit to general medicine * IV fluids (NS at 100 ml/hr) * Blood cultures x 2, urine cultures * Continue Ceftriaxone for now, pending cultures * Repeat Lactate * Hold home Lisinopril and Metformin in view of JOSEPH * Accuchecks and Novolog sliding scale for now. * DVT PPx: SubQ Heparin * Pain Management: Morphine 2 mg IV Q6P * Code Status: Full Code * Pain Management: Morphine 2 mg IV Q6P * Code Status: Full Code
[2016-12-30] MEDS ORDERED: LISINOPRIL5 M1 PO (21:07)
[2016-12-30 22:02] VITALS: BP 100/60
--- NOTE | 2016-12-31 00:21 | NUR ---
LATE ENTRY: PT ARRIVED TO FLOOR WITH DISTRIBUTION FROM PACU. PT AWAKE, A/OX3, ON 3L NC, VITALS OBTAINED AND STABLE, PT DENIES PAIN, IV SITE INTACT, IVF INFUSING PER ORDER, DAUGHTERS AT BEDSIDE, PT SETTLED AND RESTING COMFORTABLY IN BED, ORIENTED TO ROOM AND CALL REYNOSO WITHIN REACH. WILL CONTINUE TO MONITOR
[2016-12-31 01:24] VITALS: BP 102/58
--- NOTE | 2016-12-31 05:08 | Admission Certification ---
Admission Certification Certification Statement - As attending physician, I certify that at the time of - admission, based on clinical presentation, severity of - symptoms, need for further diagnostic testing and - therapeutic interventions, and risk of adverse outcomes - without in-hospital treatment, in my clinical assessment, - this patient requires an acute hospital stay for a minimum - of two nights or longer. I have also considered psychsocial - factors such as support system, advanced age, financial - issues, cognitive issues, and failed out-patient treatments, - past re-admission history, safety of patient, and lack of - compliance as applicable. Specific rationale supporting this admission is: Severe sepsis 2/2 obstructive uropathy, now s/p right ureteral stent insertion. Acute on CKD.
[2016-12-31 08:17] VITALS: BP 100/50
[2016-12-31 08:24] LABS: ABSOLUTE BASOPHIL COUNT 0 /CUMM (0.0-0.2); ABSOLUTE EOSINOPHIL COUNT 0 /CUMM (0.0-0.7); ABSOLUTE GRANULOCYTE CT 23.7 /CUMM (1.4-6.5); ABSOLUTE LYMPH COUNT 0.6 /CUMM (1.2-3.4); ABSOLUTE MONOCYTE COUNT 0.7 /CUMM (0.10-0.60); BASOPHIL % 0 % (0.0-2.0); EOSINOPHIL % 0 % (0-5); GRANULOCYTE % 94.8 % (42.2-75.2); HEMATOCRIT 30.5 % (37-47); MEAN CORPUSCULAR VOLUME 84.9 FL (81.0-99.0); MEAN PLATELET VOLUME 9.7 FL (7.4-10.4); RBC DISTRIBUTION WIDTH 14.4 % (11.5-14.5); RED BLOOD CELL CT 3.59 /CUMM (4.20-5.40)
[2016-12-31 10:03] LABS: PLATELET COUNT 78 /CUMM (130-400)
--- NOTE | 2016-12-31 14:08 | PN- Att Addend ---
Attending Addendum Attending Brief Note 71-year-old morbidly obese female with past medical history significant for type 2 diabetes mellitus, hypertension, hyperlipidemia, CK D was being admitted on the floor for obstructive uropathy status post right ureteral stent. Patient was seen and examined on the bedside this morning. She reports a little lethargic but feels significant improvement since admission. Patient did not spike any temperatures last night but her blood pressure has been mildly on the lower side. Her blood cultures grew gram-negative rods in all the 4 bottles. The plan is to keep the patient on IV ceftriaxone for now with IV fluids and to follow further recommendations by the ID for broader antibiotics corarage in case if the patient's gets hypotensive to cover for Pseudomonas as well. We'll hold on her beta gamaliel for now and will continue the rest of her home medications. DVT prophylaxis.
[2016-12-31 14:12] LABS: PT 15.8 SEC (9.4-12.5)
[2016-12-31 16:53] VITALS: BP 100/62
--- NOTE | 2016-12-31 18:49 | RADIOLOGY REPORT ---
EXAMINATION: XR ABDOMEN CLINICAL INDICATION: A 71-year-old female found to have obstructive uropathy involving the right kidney secondary to a large calculus within the right renal pelvis, seen on prior CT study dated 12/30/2016. Retrograde ureterogram and right-sided internal stent placement. COMPARISON: CT of the abdomen and pelvis done on 12/30/2016. TECHNIQUE: Twelve-spot radiographs were obtained at the time of the procedure in the OR. FINDINGS: Retrograde right ureterogram and right internal ureteric stent placement is noted. The lower part of the stent is not included within the [id number] and accordingly not evaluated. Full procedural details will be dictated by Dr. Zack Adams. Fluoroscopy Time: 1 minute, 5 seconds. IMPRESSION: Fluoroscopic assistance at the time of right-sided retrograde ureterogram and right internal ureteric stent placement.
--- NOTE | 2016-12-31 19:46 | NUR ---
ALERT AND ORIENTED X 3. VITAL SIGNS STABLE. DENIES CHEST PAIN. + PULSES STEADY GAIT NOTED. URINE FILTERED. NO DISCOMFORT NOTED. IV FLUSHED. PATIENT RESTING COMFORTABLY AT THIS TIME. WILL CONTINUE TO MONITOR
[2017-01-01 01:29] VITALS: BP 104/64
--- NOTE | 2017-01-01 08:03 | PN- Housestaff ---
CHAPITO BOYER 01/01/17 0802: Subjective Follow-up For: Sepsis of urological origin Subjective: The patient was comfortable this morning. Did not have any complaints. As per urology, the patient to be taken to the OR on Monday. Remained afebrile overnight. Review of Systems Constitutional: Reports: see HPI. Objective Last 24 Hrs of Vital Signs/I&O Vital Signs Date Time Temp Pulse Resp B/P Pulse O2 O2 Flow FiO2 Ox Delivery Rate 01/01 0129 98.2 81 18 104/64 94 Room Air 12/31 1653 97.6 79 18 100/62 93 Room Air 12/31 1600 Room Air 12/31 0817 97.5 70 18 100/50 92 Room Air Intake & Output 01/01 1600 01/01 0800 01/01 0000 Intake Total 400 Output Total 850 400 Balance -850 0 Intake, Oral 400 Output, Urine 850 400 Physical Exam General Appearance: No Acute Distress Other Physical Findings: General Exam: AAOx3, No acute distress, Skin: No rashes, no breakdown HEENT: PERRLA, EOMI Neck: Supple, No JVD No cervical lymphadenopathy CVS: Reg Rate, Normal S1,S2, No MGR Resp: Normal air entry, no ronchi/rales Abdomen: Soft, No tenderness, Normal Bowel Sounds Neuro: Normal Speech, Strength 5/5 b/l x 4 extremities, Sensation intact, CN III -XII NL, Reflexes 2+ Extremities: No cyanosis, pedal edema Current Medications: Current Medications Sig/Mitchell Start time Last Medication Dose Route Stop Time Status Admin Acetaminophen 650 MG Q6P PRN 01/01 0045 AC 01/01 PO 0046 Alprazolam 0.5 MG BID PRN 12/31 1000 AC PO 01/06 211 Ceftriaxone Sodium 1,000 MG DAILY 12/31 1000 AC 01/01 IV 1041 Insulin Aspart 0 TIDAC 12/31 0800 AC 12/31 SC 1330 Metoprolol Tartrate 50 MG BID 12/31 1000 DC PO Morphine Sulfate 2 MG Q6-PRN PRN 12/30 2200 AC IV Pantoprazole Sodium 40 MG DAILY 12/31 1000 AC 12/31 IV 0943 Sodium Chloride 500 ML BOLUS ONE 12/31 1415 DC 12/31 IV 12/31 1514 1417 Sodium Chloride 1,000 ML .Q8H 12/30 2115 AC 01/01 IV 1043 Last 24 Hrs of Lab/Johan Results Last 24 Hrs of Labs/Mics: Laboratory Tests 01/01/17 0710: Anion Gap 9, Estimated GFR 34 L, BUN/Creatinine Ratio 22.7, CBC w Diff MAN DIFF ORDERED, RBC 3.43 L, MCV 84.8, MCH 28.0, RDW 14.4, MPV 11.0 H, Gran % 90.3 H, Lymphocytes % 6.7 L, Monocytes % 2.6, Eosinophils % 0.4, Basophils % 0 L, Absolute Granulocytes 14.0 H, Segmented Neutrophils Pending, Absolute Lymphocytes 1.0 L, Absolute Monocytes 0.4, Absolute Eosinophils 0.1, Absolute Basophils 0, PUBS MCHC 33.0 12/31/16 1804: Anion Gap 14, Estimated GFR 30 L, BUN/Creatinine Ratio 21.2 12/31/16 1720: Lactic Acid 1.6 12/31/16 1500: Lactic Acid 2.0 12/31/16 1325: PT 15.8 H, INR 1.51 H Assessment/Plan Assessment: She is an older lady with a past history of diabetes, hypertension, was being evaluated for right-sided back pain. 10 days. At the time of admission, temperature 100.5, lab findings indicated WBC 13, bandemia-27. Abnormal renal function BUN 31, serum creatinine 1.9, lactic acidosis-3.6. UA revealed pyuria 25-50 WBCs. Radiological findings-CT scan abdomen and pelvis revealed obstructive uropathy of right kidney likely from large stone within the right renal pelvis at ureteropelvic junction. Also was seen mild to moderate hydronephrosis of right kidney and right ureter with some gas in the right kidney. Cystoscopy was done with the placement of right ureteral stent. Differential diagnosis: #1 pyelonephritis Below is the problem list and plan: #1 pyelonephritis-monitor WBC, fever. Continue ceftriaxone pending urine and blood culture results. Urine culture and blood culture revealed gram-negative rods. Sensitivities and identification of organisms pending Urology-Dr. Adams advising. Patient to be taken to the OR on Monday. Leukocytosis trending down compared to yesterday. #2 chronic kidney disease-serum creatinine 1.5. Stable. #3 diabetes-NovoLog sliding scale. #4 thrombocytopenia-likely secondary to sepsis. Reevaluate the history of alcoholism or any drug use. Continue to monitor. Avoid heparin at this time. #5 DVT prophylaxis-Alps. Problem List: 1. Ureteral calculus, right Pain Ratin Pain Location: Back Pain Goal: Pain 4 or less Pain Plan: Tylenol when necessary Tomorrow's Labs & Rationales: CBC-to monitor for trauma cytopenia. Basic electrolyte panel. Monitor for serum creatinine. Patient has chronic kidney disease. KIMBERLY CHAMPION,WE[facility] 01/01/17 1248: Attending MD Review Statement Attending Statement Attending MD Statement: examined this patient, discuss w/resident/PA/TRANSFORMER MOLDER, agreed w/resident/PA/TRANSFORMER MOLDER, discussed with family, reviewed EMR data (avail), discussed with nursing, discussed with case mgmt, reviewed images, amended to note Attending Assessment/Plan: 71-year-old morbidly obese female with past medical history significant for type 2 diabetes mellitus, hypertension, hyperlipidemia, CK D was being admitted on the floor for obstructive uropathy status post right ureteral stent. Patient was seen and examined on the bedside this morning. She reports no active issues and is doing much better. Patient did not spike any temperatures last night but her blood pressure remained stable. Her blood cultures grew gram-negative rods in all the 4 bottles. The plan is to keep the patient on IV ceftriaxone for now with IV fluids as per ID recommendations. Mediations reconcealiation needed as pt reports of taking amlodipine at home. Please gradually add her hypertensive meds as BP allows.
[2017-01-01 08:17] VITALS: BP 122/72
[2017-01-01 08:37] LABS: ABSOLUTE BASOPHIL COUNT 0 /CUMM (0.0-0.2); ABSOLUTE EOSINOPHIL COUNT 0.1 /CUMM (0.0-0.7); ABSOLUTE MONOCYTE COUNT 0.4 /CUMM (0.10-0.60); BASOPHIL % 0 % (0.0-2.0); EOSINOPHIL % 0.4 % (0-5); GRANULOCYTE % 90.3 % (42.2-75.2); HEMATOCRIT 29.1 % (37-47); MEAN CORPUSCULAR VOLUME 84.8 FL (81.0-99.0); PLATELET COUNT 72 /CUMM (130-400); RBC DISTRIBUTION WIDTH 14.4 % (11.5-14.5); RED BLOOD CELL CT 3.43 /CUMM (4.20-5.40); WHITE BLOOD CELL COUNT 15.5 /CUMM (4.8-10.8)
--- NOTE | 2017-01-01 11:43 | Cons- Infect Disease ---
General Information and HPI Consulting Request Date of Consult: 01/01/17 Requested By: KUSUM CHAMPION,TOMY Reason for Consult: Positive blood cultures for gram-negative rods Source of Information: patient, family History of Present Illness: This is a 71-year-old woman with diabetes, who noted right groin pain lasting several days approximately 10 days prior to admission, with no associated urinary symptom, admitted on December 30 after presenting to the emergency room with the acute onset of right flank pain, nausea, vomiting and chills. On admission she was febrile to 100.5. Laboratory data revealed a white blood cell count of 13,000 with 27 bands, BUN/creatinine 31 and 1.9, lactic acid 3.6, with normal liver enzymes. Urinalysis 5-10 RBC/25-[address] of the abdomen and pelvis without contrast revealed obstructive uropathy of the right kidney secondary to a large stone within the right renal pelvis at the UPJ, measuring 1.9 x 0.8 x 1.3 cm associated with mild to moderate hydronephrosis of the right kidney and proximal right ureter, with a small focus of gas identified within the midpole of the right kidney and a small locule of air within the right renal pelvis. She was given 2 L of fluid in the emergency room and begun on Ceftriaxone and Flagyl. She was taken to the OR that evening for cystoscopy and placement of a right ureteral stent. Intraoperatively she desaturated to 60%, requiring intubation for the procedure. She improved postop with her blood pressure remaining stable and with improved oxygenation. On December 31 blood cultures 2 were reported positive for gram-negative rods, and her white blood cell count increased with persistent bandemia. She has remained afebrile and feels improved today, with no complaints of back pain or GI symptoms. She has had no urinary symptoms throughout. Allergies/Medications Allergies: Coded Allergies: Penicillins (HIVES 12/30/16) Sulfa (Sulfonamide Antibiotics) (HIVES 12/30/16) red dye (HIVES 12/30/16) Uncoded Allergies: DAIRY FOODS (SNEEZING 12/30/16) Home Med List: Alprazolam 0.5 MG TABLET 1 TAB PO BIDP PRN ANXIETY (Reported) Lisinopril 5 MG TABLET 1 TAB PO DAILY HYPERTENSION (Reported) Metformin HCl 500 MG TABLET 1 TAB PO BID DM (Reported) Metoprolol Tartrate 50 MG TABLET 1 TAB PO BID BP (Reported) Omeprazole 20 MG CAPSULE. 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 Home Services at Home: None Primary Language: Somali Smoking Status: Former Smoker ETOH Use: denies use Illicit Drug Use: denies illicit drug use Functional Ability ADLs Independent: dressing, eating, toileting, bathing. Review of Systems Review of Systems All Other Systems: Reviewed and Negative Exam & Diagnostic Data Last 24 Hrs of Vital Signs/I&O Vital Signs Date Time Temp Pulse Resp B/P Pulse O2 O2 Flow FiO2 Ox Delivery Rate 01/01 0817 98.7 82 20 122/72 93 Room Air 01/01 0129 98.2 81 18 104/64 94 Room Air 12/31 1653 97.6 79 18 100/62 93 Room Air 12/31 1600 Room Air Intake & Output 01/01 1600 01/01 0800 01/01 0000 Intake Total 400 Output Total 850 400 Balance -850 0 Intake, Oral 400 Output, Urine 850 400 Physical Exam Other Physical Findings: She is awake and alert in no acute distress. She is afebrile. Skin reveals no rash. HEENT exam is negative. Neck is supple with no adenopathy. Lungs are clear. Heart regular rhythm with no murmur. Abdomen is obese, soft, nontender with positive bowel sounds. Back no CVA tenderness. Extremities no cyanosis, clubbing or edema. Neuro is without focality. Last 24 Hours of Lab Results: Laboratory Tests 01/01 12/31 12/31 12/31 0710 1804 1720 1500 Chemistry Sodium (137 - 145 mmol/L) 143 142 Potassium (3.5 - 5.1 mmol/L) 3.8 4.0 Chloride (98 - 107 mmol/L) 115 H 112 H Carbon Dioxide (22 - 30 mmol/L) 20 L 17 L Anion Gap (5 - 16) 9 14 BUN (7 - 17 mg/dL) 34 H 36 H Creatinine (0.5 - 1.0 mg/dL) 1.5 H 1.7 H Estimated GFR (>60 ml/min) 34 L 30 L BUN/Creatinine Ratio (7 - 25 %) 22.7 21.2 Lactic Acid (0.7 - 2.1 mmol/L) 1.6 2.0 Hematology CBC w Diff MAN DIFF ORDERED WBC (4.8 - 10.8 /CUMM) 15.5 H RBC (4.20 - 5.40 /CUMM) 3.43 L Hgb (12.0 - 16.0 G/DL) 9.6 L Hct (37 - 47 %) 29.1 L MCV (81.0 - 99.0 FL) 84.8 MCH (27.0 - 31.0 PG) 28.0 RDW (11.5 - 14.5 %) 14.4 Plt Count (130 - 400 /CUMM) 72 L MPV (7.4 - 10.4 FL) 11.0 H Gran % (42.2 - 75.2 %) 90.3 H Lymphocytes % (20.5 - 51.1 %) 6.7 L Monocytes % (1.7 - 9.3 %) 2.6 Eosinophils % (0 - 5 %) 0.4 Basophils % (0.0 - 2.0 %) 0 L Absolute Granulocytes (1.4 - 6.5 /CUMM) 14.0 H Segmented Neutrophils (42.2 - 75.2 %) 83 H Band Neutrophils (0.0 - 5.0 %) 10 H Absolute Lymphocytes (1.2 - 3.4 /CUMM) 1.0 L Lymphocytes (20.5 - 51.1 %) 7 L Absolute Monocytes (0.10 - 0.60 /CUMM) 0.4 Absolute Eosinophils (0.0 - 0.7 /CUMM) 0.1 Absolute Basophils (0.0 - 0.2 /CUMM) 0 Platelet Estimate (ADEQUATE) DECREASED Poikilocytosis 1+ Padmaja Cells 1+ PUBS MCHC (33.0 - 37.0 G/DL) 33.0 02/25 1325 Coagulation PT (9.4 - 12.5 SEC) 15.8 H INR (0.90 - 1.19) 1.51 H Last 24 Hours of Johan Results: Blood cultures 2 December 30 positive for gram negative rods Urine culture December 30 from the ER negative Urine culture December 30 from the OR approximately 15,000 colonies of gram- negative rods Diagnostic Data Recent Imaging Findings: CT of the abdomen and pelvis without contrast revealed obstructive uropathy of the right kidney secondary to a large stone within the right renal pelvis at the UPJ, measuring 1.9 x 0.8 x 1.3 cm associated with mild to moderate hydronephrosis of the right kidney and proximal right ureter, with a small focus of gas identified within the midpole of the right kidney and a small locule of air within the right renal pelvis. 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 Her clinical picture is consistent with sepsis of urologic origin and she appears to be improving on Ceftriaxone. This can be continued pending final cultures, with eventual adjustment of antibiotics taking into account her antibiotic allergies (generalized rash and swelling with Penicillin and left lower quadrant burning with sulfa). The finding of possible emphysematous pyelonephritis/pyelitis may require follow-up. Suggestion: 1. 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 Follow-up final urine and blood cultures 3. Continue Ceftriaxone pending above Consult Acknowledgment - Thank you for your consult request.
[2017-01-01 16:14] VITALS: BP 122/68
[2017-01-01] MEDS ORDERED: AMLODIPINE BESYL5 M1 PO (17:44)
[2017-01-01 23:45] VITALS: BP 132/60
[2017-01-02 07:57] LABS: ABSOLUTE BASOPHIL COUNT 0 /CUMM (0.0-0.2); ABSOLUTE EOSINOPHIL COUNT 0.1 /CUMM (0.0-0.7); ABSOLUTE GRANULOCYTE CT 9.6 /CUMM (1.4-6.5); ABSOLUTE LYMPH COUNT 1.4 /CUMM (1.2-3.4); ABSOLUTE MONOCYTE COUNT 0.5 /CUMM (0.10-0.60); BASOPHIL % 0.2 % (0.0-2.0); EOSINOPHIL % 0.9 % (0-5); GRANULOCYTE % 82.4 % (42.2-75.2); HEMATOCRIT 31.1 % (37-47); MEAN CORPUSCULAR HGB 27.6 PG (27.0-31.0); MEAN CORPUSCULAR HGB CONC 32.7 G/DL (33.0-37.0); MEAN CORPUSCULAR VOLUME 84.5 FL (81.0-99.0); MEAN PLATELET VOLUME 10.9 FL (7.4-10.4); RBC DISTRIBUTION WIDTH 14.5 % (11.5-14.5); RED BLOOD CELL CT 3.68 /CUMM (4.20-5.40); WHITE BLOOD CELL COUNT 11.7 /CUMM (4.8-10.8)
[2017-01-02 08:35] LABS: PLATELET COUNT 80 /CUMM (130-400)
[2017-01-02 08:39] VITALS: BP 136/80
--- NOTE | 2017-01-02 10:01 | PN- Housestaff ---
CHAPITO BOYER 01/02/17 1000: Subjective Follow-up For: Sepsis of urologic origin Acute kidney injury Subjective: The patient comfortable this morning. Did not have any complaints. He remained afebrile overnight. Dr. Adams, contacted with advice to keep the patient nothing by mouth at midnight. Possible procedure in the a.m. Review of Systems Constitutional: Reports: see HPI. Objective Last 24 Hrs of Vital Signs/I&O Vital Signs Date Time Temp Pulse Resp B/P Pulse O2 O2 Flow FiO2 Ox Delivery Rate 01/02 1629 98.0 71 18 136/82 96 Room Air 01/02 1431 Nasal Cannula 01/02 0839 98.0 77 20 136/80 95 Room Air 01/01 2345 98.4 79 20 132/60 95 Room Air Intake & Output 01/02 1600 01/02 0800 01/02 0000 Intake Total 1480 735 Output Total 500 200 Balance 980 535 Intake, IV 1000 375 Intake, Oral 480 360 Output, Urine 500 200 Physical Exam General Appearance: No Acute Distress Other Physical Findings: General Exam: AAOx3, No acute distress, Skin: No rashes, no breakdown HEENT: PERRLA, EOMI Neck: Supple, No JVD No cervical lymphadenopathy CVS: Reg Rate, Normal S1,S2, No MGR Resp: Normal air entry, no ronchi/rales Abdomen: Soft, No tenderness, Normal Bowel Sounds Neuro: Normal Speech, Strength 5/5 b/l x 4 extremities, Sensation intact, CN III -XII NL, Reflexes 2+ Extremities: No cyanosis, pedal edema Current Medications: Current Medications Sig/Mitchell Start time Last Medication Dose Route Stop Time Status Admin Acetaminophen 650 MG .STK-MED ONE 01/02 0822 DC PO 01/02 0823 Acetaminophen 650 MG Q6P PRN 01/01 0045 AC 01/02 PO 0832 Alprazolam 0.5 MG BID PRN 12/31 1000 AC PO 01/06 2114 Benzocaine/Menthol 1 DYLON BID 01/02 1439 AC 01/02 PO 1708 Ceftriaxone Sodium 1,000 MG DAILY 12/31 1000 AC 01/02 IV 0916 Insulin Aspart 0 TIDAC 12/31 0800 AC 12/31 SC 1330 Morphine Sulfate 2 MG Q6-PRN PRN 12/30 2200 AC IV Pantoprazole Sodium 40 MG DAILY 12/31 1000 AC 01/02 IV 0916 Patient Medication 1 ED .STK-MED ONE 01/02 1327 GA Teaching ED 01/02 1328 Sodium Chloride 1,000 ML .Q8H 12/30 2115 AC 01/02 IV 1111 Last 24 Hrs of Lab/Johan Results Last 24 Hrs of Labs/Mics: Laboratory Tests 01/02/17 0630: Anion Gap 9, Estimated GFR 45 L, BUN/Creatinine Ratio 19.2, CBC w Diff NO MAN DIFF REQ, RBC 3.68 L, MCV 84.5, MCH 27.6, RDW 14.5, MPV 10.9 H, Gran % 82.4 H , Lymphocytes % 12.0 L, Monocytes % 4.5, Eosinophils % 0.9, Basophils % 0.2, Absolute Granulocytes 9.6 H, Absolute Lymphocytes 1.4, Absolute Monocytes 0.5, Absolute Eosinophils 0.1, Absolute Basophils 0, PUBS MCHC 32.7 L Assessment/Plan Assessment: She is an older lady with a past history of diabetes, hypertension, was being evaluated for right-sided back pain. 10 days. Differential diagnosis: #1 pyelonephritis Below is the problem list and plan: #1 pyelonephritis-monitor WBC, fever. Continue ceftriaxone and change to ciprofloxacin in the a.m. Urine culture and blood culture revealed Escherichia coli. Urology-Dr. Adams advising. As per the infectious disease risk control consultant- Hiren Florentino MD, the patient is not to be taken for lithotripsy in the a.m. Instead, would be followed up with a CAT scan within 1 week and lithotripsy after infection is resolved. Leukocytosis trending down compared to yesterday. #2 chronic kidney disease-serum creatinine 1.2. Stable. #3 diabetes-NovoLog sliding scale. #4 thrombocytopenia-likely secondary to sepsis. Continue to monitor. Avoid heparin at this time. #5 DVT prophylaxis-Alps. Problem List: 1. Hydronephrosis of right kidney 2. Ureteral calculus, right Pain Ratin Pain Location: Back Pain Goal: Pain 4 or less Pain Plan: Tylenol when necessary Tomorrow's Labs & Rationales: Basic electrolyte panel-serum creatinine trending down. CHRISTY CHAMPION,LEONIDAS 01/02/17 1220: Attending MD Review Statement Attending Statement Attending MD Statement: examined this patient, discuss w/resident/PA/EGG CASER, agreed w/resident/PA/EGG CASER, reviewed EMR data (avail), discussed with nursing, discussed with case mgmt, reviewed images, amended to note Attending Assessment/Plan: Patient seen and examined, feeling much better overall. Currently denies any complaints. Patient is a 71-year-old female with past medical history significant for diabetes, hypertension, GERD and anxiety admitted with severe sepsis secondary to urological origin. 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 Status post and placement and has been started on IV antibiotics per infectious disease. Vital Signs Date Time Temp Pulse Resp B/P Pulse O2 O2 Flow FiO2 Ox Delivery Rate 01/02 0839 98.0 77 20 136/80 95 Room Air 01/01 2345 98.4 79 20 132/60 95 Room Air 01/01 1614 98.0 84 20 122/68 95 Room Air on exam; aox3, nad. cv; s1,s2, rrr. resp; clear. abd; soft, nt, bs+, no cva tenderness. ext; no edema Laboratory Tests 01/02 0630 Chemistry Sodium (137 - 145 mmol/L) 141 Potassium (3.5 - 5.1 mmol/L) 4.0 Chloride (98 - 107 mmol/L) 115 H Carbon Dioxide (22 - 30 mmol/L) 17 L Anion Gap (5 - 16) 9 BUN (7 - 17 mg/dL) 23 H Creatinine (0.5 - 1.0 mg/dL) 1.2 H Estimated GFR (>60 ml/min) 45 L BUN/Creatinine Ratio (7 - 25 %) 19.2 Hematology CBC w Diff NO MAN DIFF REQ WBC (4.8 - 10.8 /CUMM) 11.7 H RBC (4.20 - 5.40 /CUMM) 3.68 L Hgb (12.0 - 16.0 G/DL) 10.2 L Hct (37 - 47 %) 31.1 L MCV (81.0 - 99.0 FL) 84.5 MCH (27.0 - 31.0 PG) 27.6 RDW (11.5 - 14.5 %) 14.5 Plt Count (130 - 400 /CUMM) 80 L MPV (7.4 - 10.4 FL) 10.9 H Gran % (42.2 - 75.2 %) 82.4 H Lymphocytes % (20.5 - 51.1 %) 12.0 L Monocytes % (1.7 - 9.3 %) 4.5 Eosinophils % (0 - 5 %) 0.9 Basophils % (0.0 - 2.0 %) 0.2 Absolute Granulocytes (1.4 - 6.5 /CUMM) 9.6 H Absolute Lymphocytes (1.2 - 3.4 /CUMM) 1.4 Absolute Monocytes (0.10 - 0.60 /CUMM) 0.5 Absolute Eosinophils (0.0 - 0.7 /CUMM) 0.1 Absolute Basophils (0.0 - 0.2 /CUMM) 0 PUBS MCHC (33.0 - 37.0 G/DL) 32.7 L A/p; Patient is a 71-year-old female with past medical history significant for diabetes, hypertension, GERD and anxiety admitted with severe sepsis secondary to urological origin. 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 Status post and placement and has been started on IV antibiotics per infectious disease. Please check with urology if there is any plan for lithotripsy. Currently she is on IV ceftriaxone. Her creatinine is improving and her white count also has improved. She remains afebrile. Currently she is off of her antihypertensives. If blood pressure remains stable likely had an tapered and discontinued and resumed at the time of her discharge. Please switch her PPI to oral. If there is any plan for lithotripsy, patient should be kept nothing by mouth after midnight. Patient also has thrombocytopenia and likely related to sepsis. Platelet count so far stable and H&H remained stable
--- NOTE | 2017-01-02 13:32 | Transfer of Care Summary ---
Hospital Course Course Hospital Course: She is an older lady with a past history of diabetes, hypertension, was being evaluated for right-sided back pain. 10 days prior to admission. At the time of admission, temperature 100.5, lab findings indicated WBC 13, bandemia-27. Abnormal renal function BUN 31, serum creatinine 1.9, lactic acidosis-3.6. UA revealed pyuria 25-50 WBCs. Radiological findings-CT scan abdomen and pelvis revealed obstructive uropathy of right kidney likely from large stone within the right renal pelvis at ureteropelvic junction. Also was seen mild to moderate hydronephrosis of right kidney and right ureter with some gas in the right kidney. Cystoscopy was done with the placement of right ureteral stent. Repeat CT scan within a week to evaluate the emphysematous pyelonephritis. Dr Almodovar advising. Differential diagnosis: #1 pyelonephritis Below is the problem list and plan: #1 pyelonephritis- She was monitored closely for leucocytosis and fever. She was started on iv ceftriaxone, which was to be changed to po cipro to complete a total course of 14 days. Urine and blood culture results, show growth of Ecoli. Urology-Dr. Adams advising. Patient to be taken to the OR on Monday for ESWL. Leukocytosis trending down compared to yesterday. #2 chronic kidney disease-serum creatinine 1.5. Stable. #3 diabetes-NovoLog sliding scale. Blood sugar levels stable. #4 thrombocytopenia-likely secondary to sepsis. No history of alchohol use, or drugs causing a sudden drop in platelet counts. Stable now. Assessment/Plan: as above.
--- NOTE | 2017-01-02 14:47 | PN- Infect Dx ---
Subjective Subjective: Afebrile. She notes some dysuria after urination. She has no back pain Objective Last 24 Hrs of Vital Signs/I&O Vital Signs Date Time Temp Pulse Resp B/P Pulse O2 O2 Flow FiO2 Ox Delivery Rate 01/02 0839 98.0 77 20 136/80 95 Room Air 01/01 2345 98.4 79 20 132/60 95 Room Air 01/01 1614 98.0 84 20 122/68 95 Room Air Intake & Output 01/02 1600 01/02 0800 01/02 0000 Intake Total 1480 735 Output Total 500 200 Balance 980 535 Intake, IV 1000 375 Intake, Oral 480 360 Output, Urine 500 200 Physical Exam Other Physical Findings: She appears well in no acute distress Lungs are clear Heart regular rhythm with no murmur Back no CVA tenderness Extremities no cyanosis, clubbing or edema Results Last 24 Hours of Lab Results: Laboratory Tests 01/02 0630 Chemistry Sodium (137 - 145 mmol/L) 141 Potassium (3.5 - 5.1 mmol/L) 4.0 Chloride (98 - 107 mmol/L) 115 H Carbon Dioxide (22 - 30 mmol/L) 17 L Anion Gap (5 - 16) 9 BUN (7 - 17 mg/dL) 23 H Creatinine (0.5 - 1.0 mg/dL) 1.2 H Estimated GFR (>60 ml/min) 45 L BUN/Creatinine Ratio (7 - 25 %) 19.2 Hematology CBC w Diff NO MAN DIFF REQ WBC (4.8 - 10.8 /CUMM) 11.7 H RBC (4.20 - 5.40 /CUMM) 3.68 L Hgb (12.0 - 16.0 G/DL) 10.2 L Hct (37 - 47 %) 31.1 L MCV (81.0 - 99.0 FL) 84.5 MCH (27.0 - 31.0 PG) 27.6 RDW (11.5 - 14.5 %) 14.5 Plt Count (130 - 400 /CUMM) 80 L MPV (7.4 - 10.4 FL) 10.9 H Gran % (42.2 - 75.2 %) 82.4 H Lymphocytes % (20.5 - 51.1 %) 12.0 L Monocytes % (1.7 - 9.3 %) 4.5 Eosinophils % (0 - 5 %) 0.9 Basophils % (0.0 - 2.0 %) 0.2 Absolute Granulocytes (1.4 - 6.5 /CUMM) 9.6 H Absolute Lymphocytes (1.2 - 3.4 /CUMM) 1.4 Absolute Monocytes (0.10 - 0.60 /CUMM) 0.5 Absolute Eosinophils (0.0 - 0.7 /CUMM) 0.1 Absolute Basophils (0.0 - 0.2 /CUMM) 0 PUBS MCHC (33.0 - 37.0 G/DL) 32.7 L Last 24 Hours of Johan Results: Blood cultures December 30 positive for Escherichia coli resistant to Ampicillin and Unasyn Urine culture December 30 (from the OR) approximately 15,000 colonies of Escherichia coli resistant to Ampicillin and Unasyn Assessment/Plan Impression: Improving on Ceftriaxone Day 3 of treatment for Escherichia coli sepsis of urologic origin, with temperatures remaining normal and white blood cell count decreasing, now 3 days status post cystoscopy with placement of a right ureteral stent for an obstructed right kidney secondary to a large stone within the right renal pelvis at the right UPJ junction. Her dysuria is likely related to the stent. Have discussed with Urology regarding her CT findings of possible emphysematous pyelitis, and he recommends a follow-up CT scan in one week. He plans to perform a lithotripsy in several weeks after her infection has cleared. Suggestion: 1. Follow-up CT scan of the abdomen and pelvis in one week per Urology 2. Further management of her kidney stone as an outpatient per Urology 3. Continue Ceftriaxone
[2017-01-02 16:29] VITALS: BP 136/82
--- NOTE | 2017-01-02 19:35 | PN- Urology ---
Surgical Brief Attending Note Brief Attending Note: FOR ESWL ON 01/03/17
[2017-01-02] MEDS ORDERED: KEFLEX500 M1 PO (22:34)
--- NOTE | 2017-01-02 22:37 | Patient Discharge Instructions ---
Discharge Instructions General Discharge Information You were seen/treated for: Pyelonephritis You had these procedures: ESWL Watch for these problems: 1. Severe back pain 2. Fever 3. Abdominal pain Special Instructions: 1. Please see your PCP within one week of discharge. Please inform your PCP you will need to have a follow-up renal ultrasound and KUB in 1 to 2 weeks following your discharge. 2. Please strain urine to catch urine fragments. These will be needed for analysis. Keep these and take them to the Urologist. Prior to visiting the urologist, you will be requred to have the imaging study done (Renal Ultrasound and KUB) Your Urologist may consider a repeat CAT scan in two weeks. Diet Continue normal diet: Yes Activity Full Activity/No Limits: No Activity Self Limited: Yes Acute Coronary Syndrome Inclusion Criteria At DC or during hospital stay patient has or had the following: ACS DIAGNOSIS No Discharge Core Measures Meds if any: Prescribed or Continued at Discharge Meds if any: NOT Prescribed or Continued at Discharge Congestive Heart Failure Inclusion Criteria At DC or during hospital stay patient has or had the following: CHF DIAGNOSIS No Discharge Core Measures Meds if any: Prescribed or Continued at Discharge Meds if any: NOT Prescribed or Continued at Discharge Cerebrovascular accident Inclusion Criteria At DC or during hospital stay patient has or had the following: CVA/TIA Diagnosis No Discharge Core Measures Meds if any: Prescribed or Continued at Discharge Meds if any: NOT Prescribed or Continued at Discharge Venous thromboembolism Inclusion Criteria VTE Diagnosis No VTE Type NONE VTE Confirmed by (Test) NONE Discharge Core Measures - Per Current guidelines, there needs to be overlap - treatment for the first 5 days of Warfarin therapy. - If discharged on Warfarin prior to 5 days of - overlap therapy, the patient will need to be - assessed for post discharge needs including - *Post discharge parental anticoagulation - *Warfarin and/or parental anticoagulation education - *Follow up date to check INR post discharge At least 5 days overlap therapy as Inpatient No Meds if any: Prescribed or Continued at Discharge Note: Overlap Therapy is Warfarin and Anticoagulant Meds if any: NOT Prescribed or Continued at Discharge
[2017-01-03 00:48] VITALS: BP 138/82
--- NOTE | 2017-01-03 06:06 | PN- Housestaff ---
PINKY CHAMPION,[facility] 01/03/17 0605: Subjective Follow-up For: Sepsis of urologic origin Acute kidney injury Subjective: Patient was seen and examined this morning resting comfortably in bed. Patient endorses pain at approximately 4 AM, which woke her from sleep. She subsequently endorsed subjective chills. Following an administration of Morphine, the patient began to feel much better. This morning at the time of the clinical encounter she was more comfrotable and reproted being pain free. She was currently NPO owing to a lithotripsy scheduled for today. The patient also reports urinary frequency, although denies any hesitation or dysuria. She denies any fever, chills, nausea or vomiting. Review of Systems Constitutional: Reports: see HPI. Objective Last 24 Hrs of Vital Signs/I&O Vital Signs Date Time Temp Pulse Resp B/P Pulse O2 O2 Flow FiO2 Ox Delivery Rate 01/03 0821 98.3 68 20 134/70 95 Room Air 01/03 0048 98.9 73 20 138/82 95 01/02 1629 98.0 71 18 136/82 96 Room Air 01/02 1431 Nasal Cannula Intake & Output 01/03 1600 01/03 0800 01/03 0000 Intake Total 375 Output Total 300 500 Balance -300 -125 Intake, IV 375 Output, Urine 300 500 Physical Exam General Appearance: Alert, Oriented X3, Cooperative Cardiovascular: Normal S1, Normal S2, No Murmurs Lungs: Clear to Auscultation Abdomen: Normal Bowel Sounds, Soft, No Tenderness Neurological: Normal Speech Extremities: Edema 1+ Current Medications: Current Medications Sig/Mitchell Start time Last Medication Dose Route Stop Time Status Admin Acetaminophen 650 MG .STK-MED ONE 01/02 2238 DC PO 01/02 2239 Acetaminophen 650 MG Q6P PRN 01/01 0045 AC 01/02 PO 2241 Alprazolam 0.5 MG BID PRN 12/31 1000 AC PO 01/06 211 Benzocaine/Menthol 1 DYLON BID 01/02 1439 AC 01/03 PO 0937 Ceftriaxone Sodium 1,000 MG DAILY 12/31 1000 AC 01/03 IV 0937 Insulin Aspart 0 TIDAC 12/31 0800 AC 12/31 SC 1330 Morphine Sulfate 2 MG Q6-PRN PRN 12/30 2200 AC 01/03 IV 0430 Pantoprazole Sodium 40 MG DAILY 12/31 1000 AC 01/03 IV 0937 Patient Medication 1 ED .STK-MED ONE 01/02 1327 CO Teaching ED 01/02 1328 Sodium Chloride 1,000 ML .Q8H 12/30 2115 AC 01/03 IV 0519 Last 24 Hrs of Lab/Johan Results Last 24 Hrs of Labs/Mics: Laboratory Tests 01/03/17 0936: CBC w Diff NO MAN DIFF REQ, RBC 3.58 L, MCV 82.8, MCH 27.4, RDW 14.4, MPV 10.4, Gran % 76.2 H, Lymphocytes % 13.1 L, Monocytes % 9.3, Eosinophils % 1.3, Basophils % 0.1, Absolute Granulocytes 6.2, Absolute Lymphocytes 1.1 L, Absolute Monocytes 0.8 H, Absolute Eosinophils 0.1, Absolute Basophils 0, PUBS MCHC 33.1 01/03/17 0615: Anion Gap 10, Estimated GFR 49 L, BUN/Creatinine Ratio 15.5 Assessment/Plan Assessment: Ms Dyson is a 71 y/o F with past history of diabetes, hypertension, was being evaluated for right-sided back pain. 10 days. #Pyelonephritis- Monitor WBC, fever. Pateint received ceftriaxone (01/03/2017) and changed to Ciprofloxacin in the a.m (01/04/2017). Urine culture and blood culture revealed Escherichia coli. Urology-Dr. Adams advising. Patient is to be taken for lithotripsy today. Instead, would be followed up with a CAT scan within 1 week and lithotripsy after infection is resolved. Leukocytosis trending down compared to yesterday. 8.2 today. #Chronic kidney disease- Serum creatinine 1.1. Stable. #Diabetes NovoLog sliding scale. #Thrombocytopenia- Likely secondary to sepsis vs HIT Hold all heparin Products for AC #DVT prophylaxis Alps. Problem List: 1. Kidney stone 2. UTI (urinary tract infection) 3. Sepsis 4. Ureteral calculus, right Pain Ratin Pain Location: Right Flank Pain Goal: Remain pain free Pain Plan: Morphine Tylenol PRN Tomorrow's Labs & Rationales: No labs CHRISTY CHAMPION,LEONIDAS 01/03/17 1223: Attending MD Review Statement Attending Statement Attending MD Statement: examined this patient, discuss w/resident/PA/PLAYGROUND OFFICIAL, agreed w/resident/PA/PLAYGROUND OFFICIAL, reviewed EMR data (avail), discussed with nursing, discussed with case mgmt, reviewed images, amended to note Attending Assessment/Plan: Patient seen and examined, did complain of pain in the right side of the back and flank region last night. This morning she is pain-free. Patient is scheduled for ESWL today. Vital Signs Date Time Temp Pulse Resp B/P Pulse O2 O2 Flow FiO2 Ox Delivery Rate 01/03 0821 98.3 68 20 134/70 95 Room Air 01/03 0048 98.9 73 20 138/82 95 01/02 1629 98.0 71 18 136/82 96 Room Air 01/02 1431 Nasal Cannula on exam: aox3, nad. cv; s1, s2, rrr resp; clear. abd; soft, nt, bs+, no cva tenderness currently. ext: no edema. Laboratory Tests 01/03 01/03 0936 0615 Chemistry Sodium (137 - 145 mmol/L) 144 Potassium (3.5 - 5.1 mmol/L) 4.5 Chloride (98 - 107 mmol/L) 116 H Carbon Dioxide (22 - 30 mmol/L) 18 L Anion Gap (5 - 16) 10 BUN (7 - 17 mg/dL) 17 Creatinine (0.5 - 1.0 mg/dL) 1.1 H Estimated GFR (>60 ml/min) 49 L BUN/Creatinine Ratio (7 - 25 %) 15.5 Hematology CBC w Diff NO MAN DIFF REQ WBC (4.8 - 10.8 /CUMM) 8.2 RBC (4.20 - 5.40 /CUMM) 3.58 L Hgb (12.0 - 16.0 G/DL) 9.8 L Hct (37 - 47 %) 29.6 L MCV (81.0 - 99.0 FL) 82.8 MCH (27.0 - 31.0 PG) 27.4 RDW (11.5 - 14.5 %) 14.4 Plt Count (130 - 400 /CUMM) 89 L MPV (7.4 - 10.4 FL) 10.4 Gran % (42.2 - 75.2 %) 76.2 H Lymphocytes % (20.5 - 51.1 %) 13.1 L Monocytes % (1.7 - 9.3 %) 9.3 Eosinophils % (0 - 5 %) 1.3 Basophils % (0.0 - 2.0 %) 0.1 Absolute Granulocytes (1.4 - 6.5 /CUMM) 6.2 Absolute Lymphocytes (1.2 - 3.4 /CUMM) 1.1 L Absolute Monocytes (0.10 - 0.60 /CUMM) 0.8 H Absolute Eosinophils (0.0 - 0.7 /CUMM) 0.1 Absolute Basophils (0.0 - 0.2 /CUMM) 0 PUBS MCHC (33.0 - 37.0 G/DL) 33.1 A/P; Patient is a 71-year-old female with past medical history significant for diabetes, hypertension, GERD and anxiety admitted with severe sepsis secondary to urological origin. 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 Status post stent placement and has been started on IV antibiotics per infectious disease. Today she is scheduled for ESWL. Patient is also bacteremic in both urine and blood culture growing Escherichia coli. Infectious disease recommended antibiotics. Will follow further recommendations about switching IV to oral. Patient currently getting IV fluids. Currently denies any pain. After ESWL today, if patient continues to improve then likely she can discharge home tomorrow. She remains afebrile and her white count has improved. No further imaging needed at this time but will likely need a repeat CAT scan in a week. Thrombocytopenia: Platelets stable. No evidence of active bleeding. DVT prophylaxis; ALPS.
[2017-01-03 08:21] VITALS: BP 134/70
[2017-01-03 10:08] LABS: ABSOLUTE BASOPHIL COUNT 0 /CUMM (0.0-0.2); ABSOLUTE EOSINOPHIL COUNT 0.1 /CUMM (0.0-0.7); ABSOLUTE GRANULOCYTE CT 6.2 /CUMM (1.4-6.5); ABSOLUTE LYMPH COUNT 1.1 /CUMM (1.2-3.4); ABSOLUTE MONOCYTE COUNT 0.8 /CUMM (0.10-0.60); BASOPHIL % 0.1 % (0.0-2.0); EOSINOPHIL % 1.3 % (0-5); GRANULOCYTE % 76.2 % (42.2-75.2); HEMATOCRIT 29.6 % (37-47); MEAN CORPUSCULAR HGB 27.4 PG (27.0-31.0); MEAN CORPUSCULAR HGB CONC 33.1 G/DL (33.0-37.0); MEAN CORPUSCULAR VOLUME 82.8 FL (81.0-99.0); MEAN PLATELET VOLUME 10.4 FL (7.4-10.4); RBC DISTRIBUTION WIDTH 14.4 % (11.5-14.5); RED BLOOD CELL CT 3.58 /CUMM (4.20-5.40); WHITE BLOOD CELL COUNT 8.2 /CUMM (4.8-10.8)
[2017-01-03 10:30] LABS: PLATELET COUNT 89 /CUMM (130-400)
--- NOTE | 2017-01-03 10:56 | NUR ---
physical therapy: arrived to room pt sitting up. introduced self and role and asked how the patient has been moving. She states that she has been independent w/activity in hospital and been walking around floor w/family/supervision. At this time pt. can be put on hold due to independence status and d/c is Home self care.
--- NOTE | 2017-01-03 12:23 | NUR ---
NURSING NOTE: PATIENT A/OX3, ROOM AIR, VSS 130/74, 70, 20, 98.4. ALL JEWELRY REMOVED, UNDERWEAR REMOVED, GLASSES REMOVED. PATIENT SCRUBBED. PATIENT LEFT FLOOR VIA STRETCHER WITH DISTRIBUTION AT THIS TIME TO OR FOR LITHROTRIPSY PROCEDURE. WILL AWAIT RETURN. SOME FAMILY WAITING AT BEDSIDE.
--- NOTE | 2017-01-03 12:28 | NUR ---
NURSING NOTE: PATIENT WAS INFORMED 01/02/17 IN PM THAT SHE WOULD BE GOING FOR LITHOTRIPSY PROCEDURE ON 01/03/[address] MARVIN. PATIENT PLACED NPO. @ APPROXIMATELY 12PM DR. TORRES SPOKE WITH PATIENT AND FAMILY AND INFORMED THEM SHE WOULD NOT BE GOING TO OR TODAY PER DR. MARVIN YESTERDAY AFTERNOON. THE PATIENT'S FAMILY BECAME VERY UPSET WITH THIS INFORMATION. DR. TORERS THEN SPOKE WITH MINK FARMER 096 AND DISCUSSED THE PLANS. MINK FARMER WAS TO FOLLOW UP WITH RESIDENT TO FIND OUT SCHEDULES. DURING THIS TIME, THE PATIENT'S DAUGHTER CALLED DR. MARVIN. DR. MARVIN THEN CALLED THIS RN AND INFORMED THAT THE PATIENT WOULD INDEED BE GOING TO THE OR TODAY AT 1PM. DR. MARVIN ALSO INFORMED THIS RN THAT THE PATIENT'S DAUGHTER WAS YELLING AND SCREAMING AT HIM OVER THE PHONE. NURSING FRUIT SORTER Vickie BAEZ NOTIFIED. PATIENT SAFETY STAFF TO COME AND SPEAK WITH FAMILY. WILL CONTINUE TO MONITOR.
--- NOTE | 2017-01-03 13:23 | PN- Infect Dx ---
Subjective Subjective: Afebrile. She notes recurrent right flank pain. Her dysuria has resolved. Objective Last 24 Hrs of Vital Signs/I&O Vital Signs Date Time Temp Pulse Resp B/P Pulse O2 O2 Flow FiO2 Ox Delivery Rate 01/03 0821 98.3 68 20 134/70 95 Room Air 01/03 0048 98.9 73 20 138/82 95 01/02 1629 98.0 71 18 136/82 96 Room Air 01/02 1431 Nasal Cannula Intake & Output 01/03 1600 01/03 0800 01/03 0000 Intake Total 375 Output Total 300 500 Balance -300 -125 Intake, IV 375 Output, Urine 300 500 Physical Exam Other Physical Findings: She appears comfortable in no acute distress Abdomen is soft, nontender with positive bowel sounds Back no CVA tenderness Extremities no cyanosis, clubbing or edema Results Last 24 Hours of Lab Results: Laboratory Tests 01/03 01/03 0936 0615 Chemistry Sodium (137 - 145 mmol/L) 144 Potassium (3.5 - 5.1 mmol/L) 4.5 Chloride (98 - 107 mmol/L) 116 H Carbon Dioxide (22 - 30 mmol/L) 18 L Anion Gap (5 - 16) 10 BUN (7 - 17 mg/dL) 17 Creatinine (0.5 - 1.0 mg/dL) 1.1 H Estimated GFR (>60 ml/min) 49 L BUN/Creatinine Ratio (7 - 25 %) 15.5 Hematology CBC w Diff NO MAN DIFF REQ WBC (4.8 - 10.8 /CUMM) 8.2 RBC (4.20 - 5.40 /CUMM) 3.58 L Hgb (12.0 - 16.0 G/DL) 9.8 L Hct (37 - 47 %) 29.6 L MCV (81.0 - 99.0 FL) 82.8 MCH (27.0 - 31.0 PG) 27.4 RDW (11.5 - 14.5 %) 14.4 Plt Count (130 - 400 /CUMM) 89 L MPV (7.4 - 10.4 FL) 10.4 Gran % (42.2 - 75.2 %) 76.2 H Lymphocytes % (20.5 - 51.1 %) 13.1 L Monocytes % (1.7 - 9.3 %) 9.3 Eosinophils % (0 - 5 %) 1.3 Basophils % (0.0 - 2.0 %) 0.1 Absolute Granulocytes (1.4 - 6.5 /CUMM) 6.2 Absolute Lymphocytes (1.2 - 3.4 /CUMM) 1.1 L Absolute Monocytes (0.10 - 0.60 /CUMM) 0.8 H Absolute Eosinophils (0.0 - 0.7 /CUMM) 0.1 Absolute Basophils (0.0 - 0.2 /CUMM) 0 PUBS MCHC (33.0 - 37.0 G/DL) 33.1 Last 24 Hours of Johan Results: No recent cultures Assessment/Plan Impression: Overall improved on Ceftriaxone Day 4 of treatment for Escherichia coli sepsis of urologic origin, with temperatures and white blood cell count normal now 4 days status post cystoscopy with placement of a right ureteral stent for an obstructed right kidney, with recurrent right flank pain likely secondary to the stone at the UPJ junction. Plans are apparently now for an ESWL later today. Suggestion: 1. Await ESWL later today 2. Urology input regarding question of emphysematous pyelitis on the initial CT scan and need for follow-up 3. Discontinue Ceftriaxone 4. Begin Ciprofloxacin 500 mg po every 12 hours
--- NOTE | 2017-01-03 14:11 | NUR ---
NURSING NOTE: PATIENT A/OX3, DENIES PAIN AT THIS TIME. VSS PER REPORT FROM PACU. IV FLUIDS RUNNING PER ORDER NS @ 125. WILL CONTINUE TO MONITOR.
[2017-01-03] MEDS ORDERED: CIPRO500 M1 PO ×2 (15:25→19:48)
[2017-01-03 15:59] VITALS: BP 150/62
--- NOTE | 2017-01-03 16:19 | Operative Report ---
Operative/Inv Procedure Report Surgery Date: 01/03/17 Name of Procedure: right ureter stone ESWL/fluoroscopy Pre-Operative Diagnosis: right ureter stone with stent Post-Operative Diagnosis: same Estimated Blood Loss: none Surgeon/Development Representative: MD SHAVONNE, ZHAO-UROLOGY Anesthesia: moderate sedation Complications: NONE Operative/Procedure Note Note: The patient was taken to the operating room and placed on the ESWL table in supine position. The patient's right flank was positioned over the table cut- out overlying the dome of the treatment head. Timeout was performed, with the patient awake, in order to confirm the correct identity, side, anesthesia, procedure and other pertinent daniel-operative information. The patient was then anesthesized. Once the patient was adequately sedated, fluoroscopy, as well as Renal ultrasound was used to locate the right renal stone. Renal US was used to confirm the placement of the stone, and measured it to be approximately 10 mm in size at the right renal pelvis, above the stent coil. Additionally, renal U/S revealed no hydronephrosis, and no solid tumor. With the stone's position optimized, using AP and oblique fluoroscopy views, the right renal E.S.W.L. was initiated at low energy level. After noting the patient's tolerance to the shockwaves, the intensitiy was ramped up to maximum level. At the end of the procedure, the composition of the right renal stone had changed significantly, indicating the shattering of the renal stone. Of note, a total of 2500 shockwaves were delivered to the stones. The patient tolerated the ESWL procedure well, was awakened, then taken to recovery in satisfactory condition via stretcher. The patient was dischared home with pain medications, diet orders, and intructions to catch fragments by straining the urine. The patient to to have follow-up renal ultrasound and KUB in 1 to 2 weeks, prior to follow-up visit in my office. Discharge Disposition: PACU Additional Comments: OK TO DC HOME PER MEDICINE: F/U RENAL US IN 2 WEEKS-THEN F/U IN OFFICE. CC: ZHAO MARVIN MD
[2017-01-03 17:52] VITALS: BP 150/86
[2017-01-04 00:33] VITALS: BP 140/80
--- NOTE | 2017-01-04 05:59 | PN- Housestaff ---
PINKY CHAMPION,[facility] 01/04/17 0558: Subjective Follow-up For: Sepsis of Urological Origin S/P Lithotripsy Subjective: Patient seen and exmained this morning. Offers no complaints. States that she feels good and does not endorse any pain s/p lithotripsy. The patient reports increased urinary frequency however denies any dysuria, hematuria or hesitation. The patient denies any fever, chills, nausea of vomiting. Review of Systems Constitutional: Reports: see HPI. Objective Last 24 Hrs of Vital Signs/I&O Vital Signs Date Time Temp Pulse Resp B/P Pulse O2 O2 Flow FiO2 Ox Delivery Rate 01/04 0839 98.3 64 20 138/80 94 Room Air 01/04 0033 98.0 64 20 140/80 95 Room Air Intake & Output 01/04 1600 01/04 0800 01/04 0000 Intake Total 1000 375 Output Total 400 200 Balance 600 175 Intake, IV 1000 375 Output, Urine 400 200 Physical Exam General Appearance: Alert, Oriented X3, Cooperative Cardiovascular: Normal S1, Normal S2, No Murmurs Lungs: Clear to Auscultation Abdomen: Normal Bowel Sounds, Soft, No Tenderness Neurological: Normal Gait, Normal Speech, Strength at 5/5 X4 Ext, Normal Tone Extremities: No Edema Current Medications: Current Medications Sig/Mitchell Start time Last Medication Dose Route Stop Time Status Admin Acetaminophen 650 MG .STK-MED ONE 01/03 2038 DC PO 01/03 2039 Acetaminophen 650 MG Q6P PRN 01/01 0045 DCD 01/03 PO 2056 Alprazolam 0.5 MG BID PRN 12/31 1000 DCD PO 01/06 2114 Benzocaine/Menthol 1 DYLON BID 01/02 1439 DCD 01/03 PO 2056 Ciprofloxacin 500 MG BID 01/04 1000 DCD 01/04 PO 01/07 2159 0935 Insulin Aspart 0 TIDAC 12/31 08 DCD 12/31 SC 1330 Morphine Sulfate 2 MG Q6-PRN PRN 12/30 220 DCD 01/03 IV 0430 Pantoprazole Sodium 40 MG DAILY 12/31 1000 DCD 01/04 IV 0935 Patient Medication 1 ED .STK-MED ONE 01/04 1322 DC Teaching ED 01/04 1323 Sodium Chloride 1,000 ML .Q8H 12/30 2114 DC 01/04 IV 0936 Assessment/Plan Assessment: Ms Dyson is a 71 y/o F with past history of diabetes, hypertension, was being evaluated for right-sided back pain. 10 days. #Pyelonephritis- Patient stable for discharge. Monitor WBC, fever. Pateint received ceftriaxone (01/03/2017) and changed to Ciprofloxacin in the a.m (01/04/2017). Continue Ciprofloxacin. Urine culture and blood culture revealed Escherichia coli. Urology-Dr. Adams advising. Patient is to be taken for lithotripsy today. Instead, would be followed up with a CAT scan within 1 week and lithotripsy after infection is resolved. Leukocytosis trending down compared to yesterday. 8.2 yesterday. #Chronic kidney disease- Serum creatinine 1.1. Stable. #Diabetes NovoLog sliding scale. #Thrombocytopenia- Likely secondary to sepsis vs HIT Hold all heparin Products for AC #DVT prophylaxis Alps. Problem List: 1. Kidney stone 2. UTI (urinary tract infection) 3. Sepsis 4. Pyelonephritis 5. Ureteral calculus, right 6. Hydronephrosis of right kidney Pain Ratin Pain Location: Right Flank Pain Goal: Remain pain free Pain Plan: Morphine Tomorrow's Labs & Rationales: GAURAV HARRISON MD,LEONIDAS 01/04/17 1407: Attending MD Review Statement Attending Statement Attending MD Statement: examined this patient, discuss w/resident/PA/PHYSICAL THERAPY DIRECTOR, agreed w/resident/PA/PHYSICAL THERAPY DIRECTOR, reviewed EMR data (avail), discussed with nursing, discussed with case mgmt, amended to note Attending Assessment/Plan: Patient seen and examined, overall doing much better. Status post lithotripsy yesterday. Remained afebrile. Denies any aches or pains. Has been switched to oral ciprofloxacin. She is medically stable for discharge today on oral ciprofloxacin need a total of 14 day course of antibiotics. Should follow with her primary care doctor as well as Dr. Adams as an outpatient.
[2017-01-04 08:39] VITALS: BP 138/80
--- NOTE | 2017-01-04 19:45 | Discharge Summary ---
Visit Information Visit Dates Admission Date: 12/30/16 Discharge Date: 01/04/17 Hospital Course Course Attending Physician: LEONIDAS HARRISON MD Primary Care Physician: MOSES CHAMPION,IMER Tesfaye Other Care Providers: Mishel CHAMPION, [facility] Course: Ms Dyson is a 71-year-old female with past medical history of HTN, HLD, CKD ( stage 3A) and diabetes (type two) who presented to the emergency department at [facility] on 12/30/2016 with a chief complaint of right sided flank pain which had been going on for the past 24 hours prior to admission She was admited onto our service and below is a summarry of the care she received. #Sepsis of urological origin likely status post right stent placement s/p obstructive uropathy Imaging studies at the emergency department did show stone measuring 1.90.81.3 cm as well as evidence of emphysematous pyelitis. The patient was taken immediately for a right stent insertion as well as a retrograde pyelogram and fluoroscopy. The patient tolerated this procedure well. After the procedure the patient was maintained on IV fluids for hydration. She was initially started on ceftriaxone. Her lactic acid was also trended which eventually normalized. On day 5 of admission the patient was taken for an ESW L/ fluoroscopy which she tolerated well. Patient's blood cultures were positive for Escherichia coli. On day 6 of admission the patient was switched to by mouth antibiotics and sent home on a 14 day duration of ciprofloxacin. As recommended that the patient may need additional imaging was discharged to ensure emphysematous pyelitis found on initial CT has resolved. #Acute kidney injury On admission patient's creatinine was 1.9 Nephrotoxic medications such lisinopril were initially held. We continue monitoring the patient's creatinine level which eventually reached 1.1 prior to discharge. #History of diabetes mellitus We began the patient on a sliding scale. Blood sugars were checked 3 times a day. Patient's blood sugars were well controlled. At the time of discharge the patient was started back on her home medications. #History of hypertension Initially the patient was hypotensive at 98/65. While admitted patient pressures were well controlled. She was discharged home on her home antihypertensives. Allergies: Coded Allergies: Penicillins (HIVES 12/30/16) Sulfa (Sulfonamide Antibiotics) (HIVES 12/30/16) red dye (HIVES 12/30/16) Uncoded Allergies: DAIRY FOODS (SNEEZING 12/30/16) Significant Procedures: 12/30/16: CYSTOSCOPY: RIGHT STENT INSERTION. RETROGRADE PYELOGRAM. FLUROSCOPY 01/03/17: Right ureter stone ESWL/fluoroscopy Pertinent Lab Results: SERVICE DATE: 12/30/16-1258 EXAM TYPE: CAT - CT ABD & PELVIS W/O IV CONTRAST IMPRESSION: 1. Obstructive uropathy of the right kidney secondary to a large stone within the right renal pelvis, at the right ureteropelvic junction. This stone measures approximately 1.9 x 0.8 x 1.3 cm in transverse, AP and craniocaudal dimensions respectively. Two small locules of air are identified within the midpole of the right kidney as well as the right renal pelvis. In the absence of a known recent attempt at catheterization, this could reflect emphysematous pyelitis secondary to superimposed acute bacterial infection in the setting of obstruction. An early or developing emphysematous pyelonephritis can also present similarly and carries a high risk for fulminant sepsis. Recommend urological consultation and correlation with urinalysis and urine culture. 2. Scattered sigmoid diverticulosis, without secondary signs of acute diverticulitis. 3. Additional nonemergent findings, as detailed above. DICTATED BY: CARMEN CHAMPION,VIKTOR SERVICE DATE: 12/30/16- EXAM TYPE: RAD - [id number] VIEW IMPRESSION: Fluoroscopic assistance at the time of right-sided retrograde ureterogram and right internal ureteric stent placement. DICTATED BY: VIDHI UMANA MD Disposition Summary Disposition Principal Diagnosis: #Pyelonephritis Additional Diagnosis: #Chronic kidney disease #Diabetes #Thrombocytopenia Discharge Disposition: home or self care Discharge Instructions General Discharge Information Code Status: Full Code Patient's Diet: Heart Healty Patient's Activity: As tolerated Follow-Up Instructions/Appts: 1. Please see your PCP within one week of discharge. Please inform your PCP you will need to have a follow-up renal ultrasound and KUB in 1 to 2 weeks following your discharge. 2. Please strain urine to catch urine fragments. These will be needed for analysis. Keep these and take them to the Urologist. Prior to visiting the urologist, you will be requred to have the imaging study done (Renal Ultrasound and KUB) Your Urologist may consider a repeat CAT scan in two weeks. Medications at Discharge Discharge Medications: Continue taking these medications: Metformin HCl (Metformin HCl) 500 MG TABLET 1 Tablet ORAL TWICE DAILY Qty = 60 Omeprazole (Omeprazole) 20 MG CAPSULE.DR 1 Capsule ORAL DAILY Qty = 90 Metoprolol Tartrate (Metoprolol Tartrate) 50 MG TABLET 1 Tablet ORAL TWICE DAILY Qty = 60 Alprazolam (Alprazolam) 0.5 MG TABLET 1 Tablet ORAL 2 x Daily as needed as needed for ANXIETY Qty = 60 Lisinopril (Lisinopril) 5 MG TABLET 1 Tablet ORAL DAILY Amlodipine Besylate (Amlodipine Besylate) 5 MG TABLET 1 Tablet ORAL DAILY Days = 30 Start taking the following new medications: Ciprofloxacin HCl (Cipro) 500 MG TABLET 1 Tablet ORAL TWICE DAILY Qty = 26 No Refills Copies To: MOSES CHAMPION,IMER Tesfaye; ZHAO MARVIN MD
--- NOTE | 2017-01-05 13:33 | Operative Report ---
Operative/Inv Procedure Report Surgery Date: 12/30/16 Name of Procedure: Cystoscopy, right retrograde pyelogram, right stent placement.
== END 2017-01-04 14:14 | DRG 854 ==
LOC: ENRESERVTM → ENRESERVDT → ERH 10:45 → 2NB 19:54 → PACUH 19:54 → 2NB 21:05
PROVIDERS: Internal Medicine; Internal Medicine Endocrinology, Diabetes & Metabolism; Internal Medicine Interventional Cardiology; Physician Assistant; ADMIT Student in an Organized Health Care Education/Training Program
PROC: 0T768DZ Dilation of Right Ureter with Intraluminal Device, Via Natural or Artificial Opening Endoscopic (ICD-10-PCS; principal; 2016-12-30)
PROC: 0TC38ZZ Extirpation of Matter from Right Kidney Pelvis, Via Natural or Artificial Opening Endoscopic (ICD-10-PCS; 2017-01-03)
PROC: BT1DZZZ Fluoroscopy of Right Kidney, Ureter and Bladder (ICD-10-PCS; 2017-01-03)
DX: A41.9 Sepsis, unspecified organism (principal); N17.9 Acute kidney failure, unspecified; D69.6 Thrombocytopenia, unspecified; E11.22 Type 2 diabetes mellitus with diabetic chronic kidney disease; Z68.42 Body mass index [BMI] 45.0-49.9, adult; N18.3 Chronic kidney disease, stage 3 (moderate); N11.1 Chronic obstructive pyelonephritis; N10 Acute pyelonephritis; N13.6 Pyonephrosis; R65.20 Severe sepsis without septic shock; E66.9 Obesity, unspecified; I10 Essential (primary) hypertension; E78.5 Hyperlipidemia, unspecified; K21.9 Gastro-esophageal reflux disease without esophagitis; F41.9 Anxiety disorder, unspecified; I12.9 Hypertensive chronic kidney disease with stage 1 through stage 4 chronic kidney disease, or unspecified chronic kidney disease; Z79.84 Long term (current) use of oral hypoglycemic drugs
CPT/HCPCS: 2NBP; 36415; 74000; 74176; 81001; 82436; 87040; 87086; 93005; 93010; 96361; 96365; 96375; 99291; C2617; C9399; J0131; J0696; J1644; J1885; J2175; J2250; J3010; J7040